=== PATIENT | female | born 1940 | race Caucasian/White ===

== ENCOUNTER 2022-01-04 11:50 | Emergency (ER) | payer MEDICARE, SELFPAY ==
[2022-01-04 12:03] VITALS: BP 191/83; PULSE 69; RESP 18; TEMP 36.6; O2SAT 94; BMI 23.6
[2022-01-04 12:18] VITALS: BP 175/80; PULSE 69; RESP 18; TEMP 36.6; O2SAT 96; BMI 23.6
[2022-01-04 12:27] LABS: Apearance,Urine Clear (Clear); Color,Urine Yellow (Yellow); PH,Urine 5.5 (5.0-8.5)
[2022-01-04 12:28] LABS: Bilirubin,Urine Negative (Negative); Blood, Urine Trace (Negative); Glucose,Urine (UA) Negative (Negative); Ketones,Urine Negative (Negative); Protein,Urine 1+ (Negative); UTC Leukocyte Esterase,Urine Trace (Negative); UTC Nitrate,Urine Negative (Negative); Urobilinogen,Urine 0.2 EU/dl (0.2)
--- NOTE | 2022-01-04 12:39 | HMH.EDUTC ---
[facility] [place] Clinical Impression: UTI (urinary tract infection) Qualifiers: Urinary tract infection type: site unspecified Hematuria presence: with hematuria Qualified Code(s): N39.0 - Urinary tract infection, site not specified Disposition: Home, Self-Care Condition on Discharge: Good Instructions: Urinary Tract Infection, Urine Culture, DI for Urinary Tract Infection (UTI) Additional Instructions: Drink plenty of fluids. Take tylenol or ibuprofen for pain or fever. Take the medications as directed. Follow up with your regular doctor. GO TO THE ER FOR ANY WORSENING SYMPTOMS The pyridium will make your urine turn orange, this is an expected side effect. It will stain your clothes if it comes into contact with them. We will culture the urine. That will tell what bacteria is causing your infection and which antibiotics will treat it best. Sometimes the first antibiotic we prescribe turns out to not work against different bacteria. So, make sure you follow up within 3 days if you are not getting better. Prescriptions: Nitrofurantoin Monohyd/M-Cryst [Macrobid 100 mg Capsule] 100 mg PO BID 5 Days #10 cap Transmission Status: Received by [facility] Phenazopyridine HCl [Pyridium 200mg Tablet] 200 pow PO TID #6 tab Transmission Status: Received by [facility] Referrals: Hasmukh Stearns [Primary Care Provider] - Time of Disposition: 12:41 Medical Decision Making - Medical Records Medical records reviewed: No: I reviewed the patient's medical records. - [place] Inquiry Pt receiving controlled substance: No Vital Signs: 01/04/22 12:03 01/04/22 12:18 01/04/22 12:42 Temperature 97.9 F 97.9 F 97.9 F Temperature Source Oral Oral Pulse Rate 69 Pulse Rate [Right Radial] 69 69 Respiratory Rate 18 18 18 Blood Pressure 175/80 H Blood Pressure [Right Arm] 191/83 H 175/80 H Blood Pressure Mean [Right Arm] 119 111 Blood Pressure Source [Right Arm] Automatic Cuff Blood Pressure Position [Right Arm] Sitting 02 Sat by Pulse Oximetry 94 L 96 Oxygen Delivery Method Room Air - Lab Data Lab results reviewed: Yes: I reviewed the patient's lab results. Lab Results 01/04/22 12:23: Urine Color Yellow, Urine Appearance Clear, Urine pH 5.5, Ur Specific [place] 1.010, Urine Protein 1+, Urine Glucose (UA) Negative, Urine Ketones Negative, Urine Blood Trace, Urine Nitrate Negative, Urine Bilirubin Negative, Urine Urobilinogen 0.2, Ur Leukocyte Esterase Trace Orders (Tests/Meds): ORDERS Category Date Time Status Urine Culture Stat Micro 01/04/22 12:14 Results [facility] [place] - General Stated complaint: back pain, bilateral leg pain Time Seen by Provider: 01/04/22 12:39 Mode of Arrival: Ambulatory Source of Information: Patient Description of Symptoms (Recalled from Triage Doc. by RN): patient comes in with complaints of lower back and bilateral leg pain. patient states that she had a kidney infection about 2 weeks ago and took medication but she states that it is getting better HEENT Symptoms (Recalled from RN notes): No Resp Symptoms (Recalled from RN notes): No Skin Symptoms (Recalled from RN notes): No MS Symptoms (Recalled from RN notes): Yes Functional Status (Recalled from RN notes): n/a - History of Present Illness Provider Complaint: She states that for the past 3 days she has had worsening low back pain and urinary frequency. She had a uti that she was treated for around 2 weeks ago. She states she was told it was gone out of her urine but she never did feel like it got completely better. - Related Data Previous Rx's Medication Instructions Recorded levoFLOXacin [Levaquin 750mg 750 mg PO DAILY #3 tab 07/14/19 tablet] polyethylene glycoL 3350 [Miralax 17 gm PO DAILYP PRN #7 packet 07/14/19 17gm Packet] Nitrofurantoin Monohyd/M-Cryst 100 mg PO BID 5 Days #10 cap 01/04/22 [Macrobid 100 mg Capsule] Phenazopyridine HCl [Pyridium 200
[2022-01-04 12:42] VITALS: BP 175/80; PULSE 69; RESP 18; TEMP 36.6
== END 2022-01-04 12:49 | disposition home or self-care (01) ==
PROVIDERS: Emergency Provider Nurse Practitioner Family; PCP Family Medicine
DX: N39.0 Urinary tract infection, site not specified (principal); M54.50 Low back pain, unspecified; M79.605 Pain in left leg; M79.604 Pain in right leg; Z79.899 Other long term (current) drug therapy; Z88.0 Allergy status to penicillin
CPT/HCPCS: 81003; 87086; 87088; 87186; 99213; G0463

== ENCOUNTER 2022-03-30 10:20 | Emergency (ER) | payer MEDICARE, SELFPAY ==
[2022-03-30 10:21] VITALS: PULSE 76; RESP 18; O2SAT 97; BMI 18.1
[2022-03-30 10:54] VITALS: BP 119/59; PULSE 76; RESP 16; TEMP 36.6; O2SAT 97; BMI 19.5
--- NOTE | 2022-03-30 10:56 | XR_ITS ---
PROCEDURE INFORMATION: Exam: XR Complete Acute Abdomen Series Including Chest Exam date and time: 03/30/2022 10:53 AM Age: 82 years old Clinical indication: Abdominal pain; Additional info: Constipation TECHNIQUE: Imaging protocol: Radiologic exam. Complete acute abdomen series, including 2 or more views of the abdomen and a single view chest. COMPARISON: CT ABDOMEN PELVIS WO CON 07/14/2019 8:44 AM FINDINGS: Lungs: Normal. No consolidation. Pleural spaces: Normal. No pleural effusions. No pneumothorax. Heart/Mediastinum: Air-fluid level superimposed upon the mediastinum. Findings compatible with moderate hiatal hernia. Gastrointestinal tract: Retained fecal material nondistended large bowel loops. Intraperitoneal space: Normal. No free air. Organs: Postoperative change consistent with previous cholecystectomy. Bones/joints: Normal. No acute fracture. Soft tissues: Normal. IMPRESSION: Nonspecific bowel gas pattern.
--- NOTE | 2022-03-30 11:11 | EXP.UTC ---
Discharge Plan Disposition Patient Disposition: Home, Self-Care Condition: Good Prescriptions Prescriptions: No Action clopidogrel [Plavix] 75 mg tablet 75 mg PO DAILY ferrous sulfate [iron] 325 mg (65 mg iron) tablet 325 mg PO DAILY rosuvastatin 20 mg tablet 20 mg PO DAILY nitrofurantoin macrocrystal 100 mg capsule 100 mg PO BID Rx Instructions: must administer with a meal/food cholecalciferol (vitamin D3) [Vitamin D3] 25 mcg (1,000 unit) capsule 25 mcg PO DAILY aspirin 81 mg tablet,delayed release (DR/EC) 81 mg PO DAILY lisinopril 10 mg tablet 10 mg PO DAILY acetaminophen [Tylenol 8 Hour] 650 mg tablet extended release 650 mg PO Q12H gabapentin 300 mg capsule 300 mg PO BID nifedipine 90 mg tablet extended release 90 mg PO DAILY metoprolol succinate 25 mg tablet extended release 24 hr 25 mg PO DAILY alendronate 70 mg tablet 70 mg PO WEEKLY allopurinol 100 mg tablet 100 mg PO DAILY oxybutynin chloride 5 mg tablet 5 mg PO BID furosemide 40 mg tablet 80 mg PO DAILY sulfamethoxazole-trimethoprim 800-160 mg tablet 1 tab PO BID tramadol 50 mg tablet 50 mg PO BID PRN Referrals Follow up/Referrals: Jovanny Gonzalez MD [Primary Care Provider] - See instructions Activity Restrictions/Add. Instructions Additional Instructions/Restrictions: Ahwm-iaf-zdhtpjq MiraLAX daily for 5 days. Kqmy-cuw-sivzozo Dulcolax suppository as needed to stimulate a bowel movement. Follow-up with primary care provider for further care, call for appointment. Clinical Impressions Clinical Impression: Encounter for pessary maintenance, Acute constipation Discharge ED Provider: Raj Lockhart [facility] General Chief complaint: Recheck/Abnormal Lab/Rx Stated complaint: constipation Mode of Arrival: Ambulatory Source of Information: Patient Limitations: No Limitations Time Seen by Provider: 03/30/22 11:11 Description of Symptoms (Recalled from Triage Doc. by RN): pt comes in with c/o constipation ongoing for 6-7 days. pts caregiver has not tried anything over the counter to help. pt reports no use of narcotics. HEENT Symptoms (Recalled from RN notes): No Resp Symptoms (Recalled from RN notes): No Skin Symptoms (Recalled from RN notes): No MS Symptoms (Recalled from RN notes): No Functional Status (Recalled from RN notes): n/a History of Present Illness Provider Complaint: She states that it has been 5 days since her last bowel movement. She is having lower abdominal cramping also. She also has a pessiary to hold her bladder up that has been stuck in for the past 7 days. She is supposed to remove it every 3 days but she has been unable to get it out. Related Data Home Medications Medication Instructions Recorded Confirmed alendronate 70 mg tablet 70 mg PO WEEKLY osteoporosis 03/26/22 03/28/22 allopurinol 100 mg tablet 100 mg PO DAILY 03/26/22 03/28/22 gabapentin 300 mg capsule 300 mg PO BID 03/26/22 03/28/22 metoprolol succinate 25 mg 25 mg PO DAILY HTN 03/26/22 03/28/22 tablet,extended release 24 hr nifedipine 90 mg tablet,extended 90 mg PO DAILY HTN 03/26/22 03/28/22 release acetaminophen 650 mg 650 mg PO Q12H 03/28/22 03/28/22 tablet,extended release (Tylenol 8 Hour) aspirin 81 mg tablet,delayed 81 mg PO DAILY 03/28/22 03/28/22 release cholecalciferol (vitamin D3) 25 25 mcg PO DAILY 03/28/22 03/28/22 mcg (1,000 unit) capsule (Vitamin D3) clopidogrel 75 mg tablet (Plavix) 75 mg PO DAILY 03/28/22 03/28/22 ferrous sulfate 325 mg (65 mg 325 mg PO DAILY 03/28/22 03/28/22 iron) tablet (iron) furosemide 40 mg tablet 80 mg PO DAILY 03/28/22 03/28/22 lisinopril 10 mg tablet 10 mg PO DAILY 03/28/22 03/28/22 nitrofurantoin macrocrystal 100 mg 100 mg PO BID 03/28/22 03/28/22 capsule oxybutynin chloride 5 mg tablet 5 mg PO BID 03/28/22 03/28/22 rosuvastatin 20 mg tablet 20 mg PO DAILY 03/28/2203/28
[2022-03-30 12:00] VITALS: BP 132/27; PULSE 66; RESP 18; O2SAT 97
[2022-03-30 12:30] VITALS: BP 127/51; PULSE 68; RESP 18; O2SAT 92
[2022-03-30 13:00] VITALS: BP 127/52; PULSE 65; O2SAT 98
--- NOTE | 2022-03-30 13:11 | HMH.EDGENADL ---
Discharge Plan Disposition Patient Disposition: Home, Self-Care Condition: Good Chief Complaint: Recheck/Abnormal Lab/Rx Prescriptions Prescriptions: No Action clopidogrel [Plavix] 75 mg tablet 75 mg PO DAILY ferrous sulfate [iron] 325 mg (65 mg iron) tablet 325 mg PO DAILY rosuvastatin 20 mg tablet 20 mg PO DAILY nitrofurantoin macrocrystal 100 mg capsule 100 mg PO BID Rx Instructions: must administer with a meal/food cholecalciferol (vitamin D3) [Vitamin D3] 25 mcg (1,000 unit) capsule 25 mcg PO DAILY aspirin 81 mg tablet,delayed release (DR/EC) 81 mg PO DAILY lisinopril 10 mg tablet 10 mg PO DAILY acetaminophen [Tylenol 8 Hour] 650 mg tablet extended release 650 mg PO Q12H gabapentin 300 mg capsule 300 mg PO BID nifedipine 90 mg tablet extended release 90 mg PO DAILY metoprolol succinate 25 mg tablet extended release 24 hr 25 mg PO DAILY alendronate 70 mg tablet 70 mg PO WEEKLY allopurinol 100 mg tablet 100 mg PO DAILY oxybutynin chloride 5 mg tablet 5 mg PO BID furosemide 40 mg tablet 80 mg PO DAILY sulfamethoxazole-trimethoprim 800-160 mg tablet 1 tab PO BID tramadol 50 mg tablet 50 mg PO BID PRN Referrals Follow up/Referrals: Jovanny Gonzalez MD [Primary Care Provider] - See instructions Activity Restrictions/Add. Instructions Additional Instructions/Restrictions: Qsss-xkf-poisccw MiraLAX daily for 5 days. Hczt-qih-mnxbutx Dulcolax suppository as needed to stimulate a bowel movement. Follow-up with primary care provider for further care, call for appointment. Clinical Impressions Clinical Impression: Encounter for pessary maintenance, Acute constipation Discharge ED Provider: Raj Lockhart General Adult HPI General Stated complaint: constipation Time Seen by Provider: 03/30/22 11:11 Mode of Arrival: Ambulatory Source of Information: Patient Limitations: No Limitations Description of Symptoms (Recalled from ER Triage Doc. by RN): pt comes in with c/o constipation ongoing for 6-7 days. pts caregiver has not tried anything over the counter to help. pt reports no use of narcotics. History of Present Illness HPI narrative: The patient is sent from the urgent treatment center. History obtained from patient and daughter. Patient states that she has a pessary. She normally takes it out every 2 days or so and cleans it and reinsert it herself. She says recently she was in the hospital and therefore did not take it out and now she cannot get it out herself. She is requesting that her pessary be removed. She has some mild suprapubic abdominal pain, but she says she thinks this it is due to not being able to get her pessary out. She also has had frequent urinary tract infections recently and is currently being treated for UTI. She was recently in the hospital at [facility] for hypertensive emergency and elevated troponins. She was admitted there on 03/26/2022 after seeing her primary care provider in the office. After discharge she followed up with cardiology and her primary care provider on 03/28/2022. Denies vomiting. Denies fever. Denies chest pain or shortness of breath. States she is not otherwise ill. She had an x-ray of the abdomen done in the urgent treatment center which did not show fecal retention without signs of obstruction. Related Data Home Medications Medication Instructions Recorded Confirmed alendronate 70 mg tablet 70 mg PO WEEKLY osteoporosis 03/26/22 03/28/22 allopurinol 100 mg tablet 100 mg PO DAILY 03/26/22 03/28/22 gabapentin 300 mg capsule 300 mg PO BID 03/26/22 03/28/22 metoprolol succinate 25 mg 25 mg PO DAILY HTN 03/26/22 03/28/22 tablet,extended release 24 hr nifedipine 90 mg tablet,extended 90 mg PO DAILY HTN 03/26/22 03/28/22 release acetaminophen 650 mg 650 mg PO Q12H 03/28/22 03/28/22 tablet,extended release (Tylenol 8 Hour)
[2022-03-30 13:45] VITALS: BP 127/52; PULSE 65; RESP 18; TEMP 36.6; O2SAT 98
== END 2022-03-30 13:46 | disposition home or self-care (01) ==
LOC: UTC 10:32 → ER 11:32
PROVIDERS: Emergency Provider Emergency Medicine; PCP Family Medicine
DX: K56.41 Fecal impaction (principal); N39.0 Urinary tract infection, site not specified; R79.89 Other specified abnormal findings of blood chemistry; I16.1 Hypertensive emergency; I20.8 Other forms of angina pectoris; Z79.1 Long term (current) use of non-steroidal anti-inflammatories (NSAID); Z79.02 Long term (current) use of antithrombotics/antiplatelets; Z79.82 Long term (current) use of aspirin; Z79.899 Other long term (current) drug therapy; Z88.0 Allergy status to penicillin; Z87.440 Personal history of urinary (tract) infections; Z83.3 Family history of diabetes mellitus
CPT/HCPCS: 74021; 99283

== ENCOUNTER → 2022-04-05 07:22 | Outpatient (CLI) | payer MEDICARE, SELFPAY ==
--- NOTE | 2022-04-05 | CA_ITS ---
APPROVED REPORT Exam: Pharmacologic Technologist: Mirian Aguilera, Ht: 5 ft 1 in Wt: 106 lbs BSA: 1.44 m2 HR: 61 bpm BP: 176/74 mmHg Medical History Medications: Lisinopril,,,,, Aspirin,,,,, Ferrous sulfate,,,,, Gabapentin,,,,, Vitamin D3,,,,, Allopurinol,,,,, Metoprolol Succinate,,,,, Tramadol,,,,, CloPIdogrel,,,,, Acetaminophen,,,,, RoSUVASTATIN,,,,, NifEDIPINE,,,,, Stress Test Details Test: LEXISCAN Reason for pharmacologic stress test: physical limitation. HR Resting HR: 61 bpm Max Heart Rate (APMHR): 137.073517 bpm Max HR Achieved: 76 bpm Target HR (85% APMHR): 116.102447 bpm % of APMHR: 55.47 Recovery HR: 64 bpm BP Resting BP: 176/74 mmHg Max BP: 194/80 mmHg Recovery BP: 176.0/77.0 mmHg ECG Resting ECG: SR Clinical Exercise duration: 04:11 min Highest Stage Achieved: Exercise capacity: 1.0 METs Stress ECG Conclusion Pt did not take BP meds -states she only takes PRN -advised to take BP meds once home. Symptoms: None Arrhythmias/Ectopy: PACs noted, atrial couplets ST-T Changes: <1.5mm ST segment depression Conclusion: Test Summary REST . . . . . . . Resting REST 10:23 . . 61 . 176/ 74 . . Stage 1 01:00 . . 72 . . . . Stage 2 01:00 . . 72 . 194/ 80 . . Stage 3 01:00 . . 65 . 182/ 73 . . Stage 4 01:00 . . 64 . 174/ 75 . . Stage 4 01:11 . . 65 . 174/ 75 . Stop exercise at 04:11 RECOVERY 01:00 . . 62 . . . . RECOVERY 02:00 . . 67 . 178/ 75 . . RECOVERY 03:00 . . 65 . 178/ 75 . . RECOVERY 03:34 . . 60 . 176/ 77 . . Electronically signed by : Kevin Thurston MD 04/05/2022 12:18:40
--- NOTE | 2022-04-05 07:31 | NM_ITS ---
APPROVED REPORT Exam: Nuclear Stress Test Indication: Angina, Fatigue, HTN, High cholesterol, Family history Patient Location: Outpatient Stress Tech: Mirian Anand [place] Tech:SHAE George RT (R)(N)(M) Ht: 5 ft 0 in Wt: 100 lbs Bra Size: 36DD HR: 61 bpm BP: 176/74 mmHg BSA: 1.39 m2 TID: 1.19 History: Angina, Fatigue, HTN, High cholesterol, Family history Procedure: Patient received a 0.4 mg of intravenous Lexiscan, resting heart rate 61 bpm, resting blood pressure 176/74 mmHg, with Lexiscan maximum heart rate achived was 72 bpm which is Less than 85 % of the maximum predicted heart rate and blood pressure was 194/80 mmHg. With Lexiscan, patient denied any complaint of chest pain. Electrocardiogram Resting electrocardiogram shows sinus rhythm, with Lexiscan there is less than 1.[address] segment depression noted from the baseline EKG. The EKG portion of the Lexiscan is nondiagnostic. Cardiac Stress and Resting SPECT Images: Cardiac Stress and Resting SPECT images were obtained using technetium 99m Myoview 29.9 mCi stress and 10.40 mCi at rest. Gated SPECT for analysis of segmental wall motion and calculation of the ejection fraction also done. Cardiac stress and rest images show reversible ischemia involving the anterior apical wall, computer derived ejection fraction is 57% with no regional wall motion abnormality, right ventricle is normal size and contractility. Conclusion: 1. The EKG portion of the Lexiscan is nondiagnostic. 2. Scintigraphic evidence of reversible ischemia involving the anterior and apical wall, computer derived ejection fraction is 57% with no regional wall motion abnormality, right ventricle is normal size and contractility. 3. Abnormal Lexiscan Myoview study. Electronically signed by : Kevin Thurston MD 04/05/2022 15:44:22
--- NOTE | 2022-04-05 07:58 | CA_ITS ---
APPROVED REPORT EXAM: Comprehensive 2D, Doppler, and color-flow Echocardiogram Power Cutting Machine Operator: Monique Britt RVT Ht: 5 ft 1 in Wt: 106lbs BSA: 1.44 BP: 129/65 mmHg Indications: NSTEMI,ANGINA,HTN 2D Dimensions LVOT 1.96 cm (M/F) 1.5-2.5 LA Volume 26.10 mL LA Volume Index 18.12 mL/m2 (M/F) 16-34 M-Mode Dimensions RVDd 2.43 cm (0.9-2.6) LA Diam 4.65 cm (1.9-4.0) LVDd 5.39 cm (3.5-5.7) Ao Diam 2.84 cm (2.0-3.7) LVDs 3.57 cm (3.5-5.7) IVSd 1.21 cm (0.6-1.1) PWd 0.76 cm (0.6-1.1) EF (Teich) 62.10% FS 33.80% EDV (Teich) 140.70 mL TAPSE 2.35 (<1.7) ESV (Teich) 53.30 mL LV Diastology E Decel Time 203.00 (160-240 msec) E/A Ratio 0.8 MED E' 10.20 (< 7 cm/sec) E'/MED E' Ratio 9.35 (>14) LAT E' 6.10 (<10 cm/sec) E/LAT E' Ratio 15.64 (>14) Aortic Valve LVOT Max 107.00 (70-110 cm/s) LVOT VTI 31.03 cm AoV Peak Hira. 206.00 (50-130 cm/s) AI PHT 726.00 ms AO Peak GR. 16.90 mmHg AO Mean GR. 10.10 (<5 mmHg) AO VTI 43.75 (18-25 cm) SYBIL (VTI) 2.14 (2.5-4.5 cm2) Mitral Valve MV E Max Hira. 95.00 (40-130 cm/s) MV A Velocity 126.00 (40-130 cm/s) E/A Ratio 0.76 MV Decel. Time 203.00 (160-240 ms) MV PHT 60.00 ms Pulmonary Valve PV Peak Velocity 110.00 (50-150 cm/s) Tricuspid Valve TR P. Velocity 306.00 cm/s RAP Estimate 10.00 mmHg RVSP 47.50 mmHg Left Ventricle Left atrium is mildly enlarged, left ventricle is normal size mild concentric left ventricular hypertrophy, estimated ejection fraction 55% with no regional wall motion abnormality, grade 1 diastolic dysfunction seen without tissue Doppler is evidence of raise left atrial pressure. Right Ventricle Right atrium and right ventricle are mildly enlarged with normal contractility. Aortic Valve Aortic valve is thickened and calcified without significant aortic stenosis, there is mild aortic insufficiency. Mitral Valve Mitral valve has mitral annular calcification, there is no mitral stenosis, there is mild mitral regurgitation. Tricuspid Valve Tricuspid valve grossly normal, there is mild tricuspid regurgitation, calculated right ventricular systolic pressure is 48 mmHg. Pulmonic Valve Pulmonic valve is poorly visualized. Great Vessels Aortic root is normal size. Inferior vena cava is normal size with normal inspiratory collapse. Pericardium No significant pericardial effusion noted. Conclusion 1. Mild biatrial enlargement, normal left ventricular size, mild concentric left ventricular hypertrophy, estimated ejection fraction 55% with no regional wall motion abnormality, grade 1 diastolic dysfunction seen without tissue Doppler evidence of reduced left atrial pressure. 2. Mildly enlarged right ventricle with normal contractility. 3. Thickened and calcified aortic valve without aortic stenosis, there is mild aortic insufficiency. 4. Mild mitral and tricuspid regurgitation, calculated right ventricular systolic pressure is 48 mmHg. 5. No significant pericardial effusion noted. 6. Inferior vena cava is normal size with normal inspiratory collapse. Electronically signed by : Kevin Thurston MD 04/05/2022 12:45:49
== END ==
LOC: RAD 07:23
PROVIDERS: PCP Family Medicine; Visit Provider Nurse Practitioner
DX: I10 Essential (primary) hypertension (principal); I21.4 Non-ST elevation (NSTEMI) myocardial infarction; I20.8 Other forms of angina pectoris
CPT/HCPCS: 78452; 93017; 93306; A9502; J2785

== ENCOUNTER 2022-04-22 13:44 | Observation (INO) | payer MEDICARE, SELFPAY ==
[2022-04-22] VITALS (24 sets, daily range): BP systolic 103–137; BP diastolic 49–66; PULSE 48–74; RESP 15–20; TEMP 36.3–37.1; O2SAT 90–100; BMI 20.4; BMI 21.9
--- NOTE | 2022-04-22 | IR_ITS ---
APPROVED REPORT Patient Location: Outpatient Gift Manager: SHAE Roger RT (R) PROCEDURES Left heart catheterization Left ventriculogram Selective coronary angiogram Drug-eluting stent deployment to the proximal LAD INDICATION Abnormal Myoview, Angina pectoris, Coronary artery disease Informed consent was obtained prior to the procedure. COMPLICATIONS None Estimated Blood Loss: Less than 10 mls TECHNIQUE One percent lidocaine used to anesthetize the right anterior aspect of the wrist. The right radial artery was accessed via the Seldinger technique. A 6 Danish sheath was placed in the right radial artery. 2.5 mg of verapamil, 800 mcg of nitroglycerin, 1mg Lidocaine and 5000 U Heparin were given through the arterial sheath. The papa catheter was also used to perform selective coronary angiogram. At the end of the angiogram guide catheter was placed in the left main artery and 3 wires were placed into the vessels 1 into the ramus intermedius abdomen the circumflex artery and then eventually a Choice PT extra-support wire was placed into the LAD. Following this a 2.75 x 22 mm resolute Downs stent was deployed at 20 víctor reducing the stenosis to less than 10%. An additional 3.25 mm x 8 mm noncompliant balloon was then deployed at 24 víctor in the proximal portion of the stent in order to post dilate. Excellent angiographic results were obtained with ELIZABETH-3 flow being present down the vessel before and after the procedure. At the end of procedure the apparatus was removed the sheath was removed good hemostasis was achieved using TR banding patient was transferred to the postop putting in stable condition ANGIOGRAPHIC RESULTS The left main artery Normal The left anterior descending artery Has a proximal 20% stenosis which is adjacent to a small first diagonal artery followed by a large septal print decorator. The LAD then has a concentric 70 to 80% stenosis. The circumflex artery Is a dominant system giving rise to a large ramus intermedius which has mild atheromatous plaque and a large circumflex artery which has mild nonflow limiting 10% stenosis The right coronary artery Small nondominant calcified with nothing greater than 30% The JANSEN ventriculogram reveals Not performed The left ventricular end-diastolic pressure Not measured IMPRESSION Proximal to mid LAD disease as described above with successful stenting reducing the severe stenosis to 0% with 1 drug-eluting stent PLAN 1. Dual antiplatelet therapy 2. Patient should be monitored overnight and given IV fluids for the creatinine of 1.9. 3. Chemistry panel should be checked in the morning to make sure that she is not experiencing contrast nephropathy 4. Standard therapy for ischemic heart disease 5. LDL less than 55 to be achieved with high intensity statin 6. Avoidance of tobacco products 7. Risk factor modification Electronically signed by : Dario Mireles MD 04/22/2022 13:40:28
[2022-04-22 09:50] LABS: Basophils # 0.1 K/mm3 (0-0.2); Basophils % 0.6 % (0.1-2.0); Eosinophils # 0.4 K/mm3 (0.0-0.4); Hematocrit 36.9 % (37.0-47.0); Hemoglobin 12.1 g/dL (12.2-16.2); Lymphocytes # 2.2 K/mm3 (0.7-4.5); Lymphocytes % 23.7 % (10-50); Mean Corpuscular HGB Conc 32.8 g/dL (31.8-35.4); Mean Corpuscular Hemoglobin 32.4 pg (27.0-31.2); Mean Corpuscular Volume 98.8 fl (81-99); Mean Platelet Volume 8.3 fl (7.4-10.4); Monocytes # 0.5 K/mm3 (0.1-1.0); Monocytes % 5.5 % (1.7-9.3); Neutrophils # 6.1 K/mm3 (1.8-7.8); Neutrophils % 66.2 % (37.0-80.0); Platelet Count 286 K/mm3 (142-424); Red Blood Count 3.74 M/mm3 (4.20-5.40); Red Cell Distribution Width 14.4 % (11.5-17.5); White Blood Count 9.2 K/mm3 (4.8-10.8)
[2022-04-22 09:55] LABS: Chloride 94 mmol/L (98-107); Potassium 3.8 mmoL/L (3.5-5.1); Sodium 131 mmol/L (136-145)
[2022-04-22 09:58] LABS: Anion Gap 15.8 mEq/L (5-15); Blood Urea Nitrogen 58 mg/dl (7-17); Carbon Dioxide 25 mmol/L (22.0-30.0); Creatinine Clearance Estimated 17 mL/min (50-200); Estimated Glomerular Filt Rate 25 ml/min (>60); GFR (African American) 31 ML/MIN (>60)
[2022-04-22 09:59] LABS: Calcium 9.4 mg/dl (8.4-10.2); Glucose 110 mg/dl (74-100)
--- NOTE | 2022-04-22 13:57 | PC.NURSE ---
arrived by [facility] from [facility]
--- NOTE | 2022-04-22 14:26 | HMH.PHAINT1 ---
Pharmacy Intervention Comments: Medication reconciliation completed via external fill records and chart review. -Trina Grover, PharmD Candidate 2022
--- NOTE | 2022-04-22 15:00 | EXP.HP ---
History of Present Illness *Admission Date: 04/22/22 *Reason for visit:: NOLBERTO, left heart cath *History of present illness: Patient is an 82-year-old woman with past medical history of hypertension, coronary artery disease, and chronic kidney disease who is admitted for abservation after underoing a left heart cath earlier today. Pt had had a nuclear stress test on 04/05/2022 to load anterior and apical reversible ischemia. She was therefore scheduled for a left heart cath today and she had 1 stent placed in her mid LAD. Patient reports she is doing well, at her baseline she does not walk very much as her ambulation is limited by hip and other joint pain as well as chronic fatigue. Currently patient denies chest pain, shortness of breath, fever, chills, vomiting, diarrhea, constipation. PFSH PFSH Medical History NSTEMI (non-ST elevated myocardial infarction) Typical angina Surgical History History of cholecystectomy History of hysterectomy Family History Father Diabetes Social History Smoking Status: Unknown if ever smoked alcohol intake: never substance use type: denies use current occupational status: retired Travel in the last 8 weeks: None household members: none housing: house Review of Systems Constitutional Constitutional: Denies body ache(s), Denies chills, Reports fatigue, Denies fever(s), Denies increased appetite, Denies poor appetite and Reports lethargy Eyes Eyes: Denies change in vision ENT Ears, Nose, Mouth, and Throat: Denies abnormal hearing, Reports disequilibrium, Reports dizziness and Denies dysphagia *Cardiovascular Cardiovascular: Denies chest pain, Denies dyspnea, Denies dyspnea on exertion, Denies irregular heart rhythm and Denies leg edema *Respiratory Respiratory: Denies chest congestion, Denies cough, Denies dyspnea, Denies dyspnea on exertion and Denies wheezing *Gastrointestinal Gastrointestinal: Denies abdominal pain, Denies constipation, Denies dysphagia, Denies nausea and Denies vomiting *Musculoskeletal Musculoskeletal: Reports arthralgias and Denies myalgias *Neurologic Neurologic: Denies abnormal hearing, Denies confusion, Reports disequilibrium, Reports dizziness and Denies lack of coordination Psychiatric Psychiatric: Denies confusion and Denies depression Endocrine Endocrine: Reports fatigue Allergic/Immunologic Allergic/Immunologic: Denies wheezing Meds Home Medications and Allergies Home Medications Medication Instructions Recorded Confirmed Type alendronate 70 mg tablet 70 mg PO WEEKLY osteoporosis 03/26/22 04/22/22 History allopurinol 100 mg tablet 100 mg PO DAILY gout 03/26/22 04/22/22 History metoprolol succinate 25 mg 25 mg PO DAILY HTN 03/26/22 04/22/22 History tablet,extended release 24 hr acetaminophen 650 mg 650 mg PO Q12H . 03/28/22 04/22/22 History tablet,extended release (Tylenol 8 Hour) aspirin 81 mg tablet,delayed 81 mg PO DAILY . 03/28/22 04/22/22 History release cholecalciferol (vitamin D3) 25 25 mcg PO DAILY . 03/28/22 04/22/22 History mcg (1,000 unit) capsule (Vitamin D3) clopidogrel 75 mg tablet (Plavix) 75 mg PO DAILY NSTEMI 03/28/22 04/22/22 History ferrous sulfate 325 mg (65 mg 325 mg PO DAILY . 03/28/22 04/22/22 History iron) tablet (iron) furosemide 40 mg tablet 80 mg PO DAILY diuretic 03/28/22 04/22/22 History lisinopril 10 mg tablet 10 mg PO DAILY Hypertension 03/28/22 04/22/22 History nitrofurantoin macrocrystal 100 mg 100 mg PO BID Infection 03/28/22 04/22/22 History capsule oxybutynin chloride 5 mg tablet 5 mg PO BID incontinence 03/28/22 04/22/22 History rosuvastatin 20 mg tablet 20 mg PO DAILY High cholesterol 03/28/22 04/22/22 History tramadol 50 mg tablet 50 mg PO BID PRN pain #60 tabs 04/15/22
[2022-04-22 15:26] LABS: CATHL Activated Clotting Time 332 SEC (74-125)
[2022-04-23] VITALS: PULSE 70
[2022-04-23 04:00] VITALS: BP 115/52; PULSE 68; PULSE 70; RESP 18; TEMP 36.9; O2SAT 90
[2022-04-23 05:22] VITALS: BMI 21.4
--- NOTE | 2022-04-23 05:45 | PC.NURSE ---
NO ACUTE CHANGES SINCE PREVIOUS ASSESSMENT. PT HAS RESTED WELL THIS SHIFT. NO C/O OF CHEST PAIN OR SOB. RADIAL CATH SITE IS C/D/I. VSS. LUNG SOUNDS ARE CLEAR.
[2022-04-23 07:16] LABS: Alanine Aminotransferase 25 U/L (12-78); Albumin Level 3.2 g/dl (3.5-5.0); Albumin/Globulin Ratio 1.2 (1.1-1.8); Alkaline Phosphatase 94 U/L (38-126); Anion Gap 12.4 mEq/L (5-15); Aspartate Amino Transferase 39 U/L (14-36); Bilirubin,Total 0.2 mg/dl (0.2-1.3); Blood Urea Nitrogen 55 mg/dl (7-17); Calcium 8.6 mg/dl (8.4-10.2); Carbon Dioxide 25 mmol/L (22.0-30.0); Chloride 101 mmol/L (98-107); Creatinine Clearance Estimated 18 mL/min (50-200); Estimated Glomerular Filt Rate 25 ml/min (>60); GFR (African American) 31 ML/MIN (>60); Globulin 2.6 g/dL (1.3-3.2); Glucose 87 mg/dl (74-100); Magnesium 2.1 mg/dl (1.6-2.3); Potassium 4.4 mmoL/L (3.5-5.1); Sodium 134 mmol/L (136-145); Total Protein,Serum 5.8 g/dl (6.3-8.2)
[2022-04-23 07:24] LABS: Basophils % 0.5 % (0.1-2.0); Eosinophils # 0.4 K/mm3 (0.0-0.4); Eosinophils % 5.4 % (0.1-12.0); Hematocrit 31.3 % (37.0-47.0); Hemoglobin 10.3 g/dL (12.2-16.2); Lymphocytes # 1.4 K/mm3 (0.7-4.5); Mean Corpuscular HGB Conc 32.6 g/dL (31.8-35.4); Mean Corpuscular Hemoglobin 31.7 pg (27.0-31.2); Mean Corpuscular Volume 97.3 fl (81-99); Mean Platelet Volume 8.6 fl (7.4-10.4); Monocytes # 0.5 K/mm3 (0.1-1.0); Monocytes % 6.8 % (1.7-9.3); Neutrophils # 4.8 K/mm3 (1.8-7.8); Neutrophils % 67.3 % (37.0-80.0); Platelet Count 235 K/mm3 (142-424); Red Blood Count 3.22 M/mm3 (4.20-5.40); Red Cell Distribution Width 14.5 % (11.5-17.5); White Blood Count 7.1 K/mm3 (4.8-10.8)
[2022-04-23 07:33] VITALS: BP 125/53; PULSE 79; RESP 16; TEMP 36.8; O2SAT 92
--- NOTE | 2022-04-23 11:05 | EXP.DC.SUM ---
General Admission date:: 04/22/22 Discharge date: 04/23/22 HPI HPI HPI: Patient is an 82-year-old woman with past medical history of hypertension, coronary artery disease, and chronic kidney disease who is admitted for abservation after underoing a left heart cath earlier today. Pt had had a nuclear stress test on 04/05/2022 to load anterior and apical reversible ischemia. She was therefore scheduled for a left heart cath today and she had 1 stent placed in her mid LAD. Patient reports she is doing well, at her baseline she does not walk very much as her ambulation is limited by hip and other joint pain as well as chronic fatigue. Currently patient denies chest pain, shortness of breath, fever, chills, vomiting, diarrhea, constipation. Hospital Course Hospital Course Hospital Course: 82-year-old female admitted for monitoring overnight due to elevated creatinine after heart cath. Monitored overnight with stable creatinine this morning. Previous labs from 2019 show creatinine 1.7. Trying to obtain labs from [facility] as she has had them drawn there previously. Patient hemodynamically stable overnight. Given stability of creatinine, suspicion that this may be her baseline, patient medically stable for discharge home. Would recommend repeat labs within the next week to monitor creatinine. Tolerating fair p.o. intake. Continue home medication, no changes as she was already on DAPT therapy. Cath results as follows. ANGIOGRAPHIC RESULTS The left main artery Normal The left anterior descending artery Has a proximal 20% stenosis which is adjacent to a small first diagonal artery followed by a large septal flight operations dispatch clerk.? The LAD then has a concentric 70 to 80% stenosis. The circumflex artery Is a dominant system giving rise to a large ramus intermedius which has mild atheromatous plaque and a large circumflex artery which has mild nonflow limiting 10% stenosis The right coronary artery Small nondominant calcified with nothing greater than 30% The JANSEN ventriculogram reveals Not performed The left ventricular end-diastolic pressure Not measured IMPRESSION Proximal to mid LAD disease as described above with successful stenting reducing the severe stenosis to 0% with 1 drug-eluting stent PLAN 1. Dual antiplatelet therapy 2. Patient should be monitored overnight and given IV fluids for the creatinine of 1.9. 3. Chemistry panel should be checked in the morning to make sure that she is not experiencing contrast nephropathy 4. Standard therapy for ischemic heart disease 5. LDL less than 55 to be achieved with high intensity statin 6. Avoidance of tobacco products 7. Risk factor modification Follow-up with PCP in a week and cardiology in 2 weeks Exam Data for Last 24 hours Vital signs and Labs for Last 24 Hours: Temp Pulse Resp BP Pulse Ox 98.2 F 79 16 125/53 L 92 L 04/23/22 07:33 04/23/22 07:33 04/23/22 07:33 04/23/22 07:33 04/23/22 07:33 Laboratory Results - last 24 hr 04/22/22 12:38: Activated Clotting Time 332 H* 04/23/22 06:35: WBC 7.1, RBC 3.22 L, Hgb 10.3 L D, Hct 31.3 L, MCV 97.3, MCH 31.7 H, MCHC 32.6, RDW 14.5, Plt Count 235, MPV 8.6, Neut % (Auto) 67.3, Lymph % (Auto) 20.0, Glasscock % (Auto) 6.8, Eos % (Auto) 5.4, Baso % (Auto) 0.5, Neut # (Auto) 4.8, Lymph # (Auto) 1.4, Glasscock # (Auto) 0.5, Eos # (Auto) 0.4, Baso # (Auto) 0.0 04/23/22 06:35: Sodium 134 L, Potassium 4.4, Chloride 101, Carbon Dioxide 25, Anion Gap 12.4, BUN 55 H, Creatinine 1.90 H, Estimated Creat Clear 18, Estimated GFR 25 L, Est GFR ( Amer) 31 L, Glucose 87 D, Calcium 8.6, Magnesium 2.1, Total Bilirubin 0.2, AST 39 H, ALT 25, Alkaline Phosphatase 94, Total Protein 5.8 L, Albumin 3.2 L, Globulin 2.6, Albumin/Globulin Ratio 1.2 I & O for Last 24 hours: Intake & Output 04/20/22 04/21/22 04/22/22 04/23/22 23:59 23:59 23:59 23:59 Intake Total 240 / 240 958 / 958 Output Total 600 / 600 200 / 200 Balance -360 / -360 758 / 758 We
[2022-04-23 11:13] VITALS: BP 109/58; PULSE 66; RESP 16; TEMP 36.7; O2SAT 93
[2022-04-23 11:48] LABS: Coronavirus 19, PCR Not Detected (NotDetected); Influenza A, PCR Not Detected (NotDetected); Influenza B, PCR Not Detected (NotDetected)
--- NOTE | 2022-04-23 11:53 | HMH.PHAINT1 ---
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 Of note, patient was already taking aspirin, clopidogrel, metoprolol, and rosuvastatin upon admission. Patient has no questions or concerns about these medications at this time.
--- NOTE | 2022-04-23 11:54 | HMH.PHAINT1 ---
Pharmacy Intervention Comments: Discharge counseling completed at bedside with the patient. No new medications were started and patient is comfortable with home medication regimen. Patient explains daughter uses a pill senior production planner at home to help manage the patient's medications. No questions or concerns at this time.
--- NOTE | 2022-04-24 11:10 | CARE MANAGER ---
Called and spoke with Ms. Zamorano in regards to post discharge status. Patient was unsure of how to care for her cardiac cath dressing. I clarified with cardiology and discussed care with patient. She is aware of her scheduled f/u appointments. No other concerns or questions at time of call.
== END 2022-04-23 13:30 | disposition home or self-care (01) ==
LOC: CATHLAB 13:45 → 2ND 13:45
PROVIDERS: Internal Medicine; Admitting Provider Emergency Medicine; PCP Family Medicine; Visit Provider Internal Medicine Adolescent Medicine
DX: N17.9 Acute kidney failure, unspecified (principal); I25.118 Atherosclerotic heart disease of native coronary artery with other forms of angina pectoris; Z95.5 Presence of coronary angioplasty implant and graft; I12.9 Hypertensive chronic kidney disease with stage 1 through stage 4 chronic kidney disease, or unspecified chronic kidney disease; I50.30 Unspecified diastolic (congestive) heart failure; N18.9 Chronic kidney disease, unspecified; I25.2 Old myocardial infarction; Z79.02 Long term (current) use of antithrombotics/antiplatelets; Z79.899 Other long term (current) drug therapy
CPT/HCPCS: G0378; 36415; 80048; 80053; 83735; 85025; 85347; 92928; 93458; 99152; 99153; C1725; C1769; C1876; C9600; C9803; J1644; Q9967; U0003; U0005

== ENCOUNTER → 2022-05-08 12:19 | Outpatient (CLI) | payer MEDICARE, SELFPAY ==
[2022-05-08 14:21] LABS: Anion Gap 13.8 mEq/L (5-15); Blood Urea Nitrogen 61 mg/dl (7-17); Calcium 10.1 mg/dl (8.4-10.2); Carbon Dioxide 28 mmol/L (22.0-30.0); Chloride 99 mmol/L (98-107); Estimated Glomerular Filt Rate 25 ml/min (>60); GFR (African American) 31 ML/MIN (>60); Glucose 95 mg/dl (74-100); Potassium 3.8 mmoL/L (3.5-5.1); Sodium 137 mmol/L (136-145)
== END ==
PROVIDERS: PCP Family Medicine; Visit Provider Nurse Practitioner
DX: E78.5 Hyperlipidemia, unspecified (principal); I10 Essential (primary) hypertension; I25.10 Atherosclerotic heart disease of native coronary artery without angina pectoris; I35.1 Nonrheumatic aortic (valve) insufficiency; I50.30 Unspecified diastolic (congestive) heart failure; N17.9 Acute kidney failure, unspecified; Z95.5 Presence of coronary angioplasty implant and graft
CPT/HCPCS: 36415; 80048

== ENCOUNTER 2022-07-16 10:00 | Outpatient (RCR) | payer MEDICARE, SELFPAY ==
--- NOTE | 2022-05-07 11:07 | HMH.PTOPEV ---
PT Outpatient Evaluation Rehab PT Outpatient Evaluation Start: 05/07/22 09:54 Freq: Status: Active Protocol: Document 05/07/22 09:54 BERNICEAMNABrissa (Rec: 05/07/22 11:07 PDESEROUX [id number]) E-signed By Thomas Freire, PT Outpatient Therapy Subjective History Subjective History Pt. is a 82 year old female whom presents to [facility] Outpatient [facility] Therapy Services in [place] for the initial evaluation this date( 05/07/22) w/ c/o chronic and intermittent imbalance, fall risk, and RLE hip/LB P! of insidious onset 4 months ago. Pt. reports noticing a decline in her balance 4 months ago, around the same time she began ambulating w/ her FWW. Pt. reports not wanting to build a dependency on her FWW, but feels safe ambulating with it at this time. Pt. reports having an increase in symptom complaint w/ ambulation and standing, reports having symptom relief w/ sitting or leaning on my walker. Pt. reports she lives alone in a 1 -story home where she is IND. w/ ADLs at this time. Pt. also reports having a cardiac cath . procedure on 04/20/22, stating everything feels good , RTMD(Dr. Mireles) next week. for a follow up. Pt. denies any SOB nor chest P! w/ exertion at this time post procedure. Pt. RTMD(Dr. Gonzalez) in [address] scan of the lumbar spine(2021) positive for degenerative changes per pt. report. Pt. denies history of cancer(self), denies history of pacemaker, denies latex allergy. PMH includes medicational allergy to Penicillin, cardiac stent(05/30), S/P Cholecystectomy, S /P Hysterectomy, pre-diabetes,
== END 2022-07-22 11:55 | disposition home or self-care (01) ==
LOC: PT 10:00
PROVIDERS: PCP Family Medicine; Visit Provider Family Medicine
DX: R26.81 Unsteadiness on feet (principal); M54.50 Low back pain, unspecified
CPT/HCPCS: 97110; 97112; 97116; 97163; 97164; 97530

== ENCOUNTER 2022-08-02 20:42 | Emergency (ER) | payer MEDICARE, SELFPAY ==
[2022-08-02 20:44] VITALS: BP 136/87; PULSE 68; RESP 20; TEMP 36.7; O2SAT 98; BMI 19.1
[2022-08-02 21:10] VITALS: BMI 22.4
[2022-08-02 21:28] LABS: Microscopic, Urine URINE MICROSCOPIC (MICROSCOPIC)
[2022-08-02 21:30] VITALS: BP 120/51; PULSE 56; O2SAT 90
[2022-08-02 21:31] LABS: Basophils # 0.1 K/mm3 (0-0.2); Basophils % 0.5 % (0.1-2.0); Eosinophils # 0.3 K/mm3 (0.0-0.4); Eosinophils % 2.3 % (0.1-12.0); Hematocrit 33.7 % (37.0-47.0); Hemoglobin 11.2 g/dL (12.2-16.2); Lymphocytes # 2.1 K/mm3 (0.7-4.5); Lymphocytes % 17.5 % (10-50); Mean Corpuscular HGB Conc 33.1 g/dL (31.8-35.4); Mean Corpuscular Hemoglobin 32.1 pg (27.0-31.2); Mean Corpuscular Volume 96.9 fl (81-99); Mean Platelet Volume 8.2 fl (7.4-10.4); Monocytes % 8.6 % (1.7-9.3); Neutrophils # 8.4 K/mm3 (1.8-7.8); Neutrophils % 71.1 % (37.0-80.0); Platelet Count 358 K/mm3 (142-424); Red Blood Count 3.48 M/mm3 (4.20-5.40); Red Cell Distribution Width 13.9 % (11.5-17.5); White Blood Count 11.8 K/mm3 (4.8-10.8)
--- NOTE | 2022-08-02 21:32 | PC.NURSE ---
called lab to notify that the urine sample is a cath specimen
[2022-08-02 21:34] LABS: Appearance,Urine CLEAR (Clear); Bilirubin,Urine Negative (Negative); Blood, Urine Negative (Negative); Chloride 90 mmol/L (98-107); Color,Urine YELLOW (Yellow); Glucose,Urine (UA) Negative (Negative); Ketones,Urine Negative (Negative); Leukocyte Esterase,Urine Negative (Negative); Nitrate,Urine Negative (Negative); Potassium 3.9 mmoL/L (3.5-5.1); Protein,Urine 1+ (Negative); Sodium 127 mmol/L (136-145); Urobilinogen,Urine 0.2 EU/dl (0.2)
[2022-08-02 21:37] LABS: Anion Gap 10.9 mEq/L (5-15); Blood Urea Nitrogen 56 mg/dl (7-17); Carbon Dioxide 30 mmol/L (22.0-30.0); Creatinine Clearance Estimated 16 mL/min (50-200); Estimated Glomerular Filt Rate 21 ml/min (>60); GFR (African American) 26 ML/MIN (>60)
[2022-08-02 21:38] LABS: Calcium 8.8 mg/dl (8.4-10.2); Glucose 106 mg/dl (74-100)
[2022-08-02 21:56] LABS: Squamous Epithelial Cell,Urine Occasional #/hpf (0-5); WBC,Urine Occasional #/hpf (0-3)
[2022-08-02 22:00] VITALS: BP 118/48; PULSE 62; O2SAT 90
--- NOTE | 2022-08-02 22:21 | PC.NURSE ---
Pt ambulatory to bathroom with assistance to attempt to have bowel movement. Pt was not able to have bowel movement at this time.
--- NOTE | 2022-08-02 22:23 | PC.NURSE ---
Dr. Chris at updating pt/family at this time
[2022-08-02 23:04] VITALS: BP 115/60; PULSE 60; RESP 20; TEMP 36.7; O2SAT 97
--- NOTE | 2022-08-03 01:46 | HMH.EDGENADL ---
Discharge Plan Disposition Patient Disposition: Home, Self-Care Condition: Fair Prescriptions Prescriptions: No Action clopidogrel [Plavix] 75 mg tablet 75 mg PO DAILY ferrous sulfate [iron] 325 mg (65 mg iron) tablet 325 mg PO DAILY rosuvastatin 20 mg tablet 20 mg PO DAILY cholecalciferol (vitamin D3) [Vitamin D3] 25 mcg (1,000 unit) capsule 25 mcg PO DAILY aspirin 81 mg tablet,delayed release (DR/EC) 81 mg PO DAILY metoprolol succinate 50 mg tablet extended release 24 hr 50 mg PO DAILY alendronate 70 mg tablet 70 mg PO FR allopurinol 100 mg tablet 100 mg PO DAILY oxybutynin chloride 5 mg tablet 5 mg PO BID furosemide 40 mg tablet 40 mg PO BID gabapentin 300 mg capsule 300 mg PO BID Qty: 60 5RF nifedipine 90 mg tablet extended release 90 mg PO DAILY Referrals Follow up/Referrals: Jovanny Gonzalez MD [Primary Care Provider] - See instructions Jesus Martinez MD [Referring] - See instructions Kenrick Jimenez MD [Referring] - See instructions Activity Restrictions/Add. Instructions Additional Instructions/Restrictions: Please follow-up with your primary care provider on Friday. If your urine output decreases even with the Eisenberg catheter, please return the emergency department immediately. Please contact urology to schedule new appointment for urinary retention at this time. Clinical Impressions Clinical Impression: Urinary tract infection Instructions Patient Instructions: DI for Urinary Tract Infection (UTI), DI for Urinary Tract Infection in Children Discharge ED Provider: Elio Chris Adult HPI General Chief complaint: Urogenital-Female Stated complaint: unable to void Time Seen by Provider: 08/02/22 23:00 Mode of Arrival: Family Vehicle Source of Information: Patient and Relative Limitations: No Limitations Description of Symptoms (Recalled from ER Triage Doc. by RN): Pt c/o not being able to void since late yesterday. Bladder distened on exam and per bladder scanner >600 ml present. Pt denies any pain in abd. Denies any fever, chills, or n/v/d. Pt does report she had known kidney disease and sees a business insight and analytics manager. States they tell me I might need to have diaylsis . History of Present Illness HPI narrative: Patient presents for evaluation of no urine output since yesterday. Patient has past medical history significant for chronic kidney disease and had lab work obtained yesterday for her symptoms outpatient, but given she has not had any urine today she presents for reevaluation. She denies pain, fever, dysuria with what little urine she has been able to put out. She does have a history of pelvic organ prolapse and currently uses a pessary as well. Related Data Home Medications Medication Instructions Recorded Confirmed alendronate 70 mg tablet 70 mg PO FR osteoporosis 03/26/22 07/31/22 allopurinol 100 mg tablet 100 mg PO DAILY gout 03/26/22 07/31/22 aspirin 81 mg tablet,delayed 81 mg PO DAILY . 03/28/22 07/31/22 release cholecalciferol (vitamin D3) 25 25 mcg PO DAILY . 03/28/22 07/31/22 mcg (1,000 unit) capsule (Vitamin D3) clopidogrel 75 mg tablet (Plavix) 75 mg PO DAILY NSTEMI 03/28/22 07/31/22 ferrous sulfate 325 mg (65 mg 325 mg PO DAILY . 03/28/22 07/31/22 iron) tablet (iron) oxybutynin chloride 5 mg tablet 5 mg PO BID incontinence 03/28/22 07/31/22 rosuvastatin 20 mg tablet 20 mg PO DAILY High cholesterol 03/28/22 07/31/22 nifedipine 90 mg tablet,extended 90 mg PO DAILY Hypertension 04/22/22 07/31/22 release furosemide 40 mg tablet 40 mg PO BID diuretic 04/29/22 07/31/22 metoprolol succinate 50 mg 50 mg PO DAILY HTN 07/31/22 07/31/22 tablet,extended release 24 hr Previous Rx's Medication Instructions Recorded gabapentin 300 mg capsule 300 mg PO BID neuropathic pain #60 07/18/22 caps Allergies Allergy/AdvReac Type Severity Reaction Status Date / Time Penicillins Aller
== END 2022-08-02 23:42 | disposition home or self-care (01) ==
PROVIDERS: Emergency Provider Emergency Medicine; PCP Family Medicine
DX: N39.0 Urinary tract infection, site not specified (principal); E78.5 Hyperlipidemia, unspecified; I25.2 Old myocardial infarction; Z90.49 Acquired absence of other specified parts of digestive tract; Z83.3 Family history of diabetes mellitus
CPT/HCPCS: 51702; 80048; 81001; 85025; 99284

== ENCOUNTER 2022-08-14 12:07 | Emergency (ER) | payer MEDICARE, SELFPAY ==
[2022-08-14 12:07] VITALS: BP 141/57; PULSE 86; RESP 19; TEMP 36.5; O2SAT 100; BMI 22.8
--- NOTE | 2022-08-14 12:24 | PC.NURSE ---
Patient given blanket and pillow
[2022-08-14 12:31] VITALS: BP 132/59
--- NOTE | 2022-08-14 12:31 | CT_ITS ---
FINAL REPORT CLINICAL HISTORY: urinary retention COMPARISON: 07/14/2019 FINDINGS: Axial CT images of the abdomen and pelvis were obtained without intravenous contrast. Coronal reformatted images were also obtained.This study was performed with techniques to keep radiation doses as low as reasonably achievable (ALARA). Individualized dose reduction techniques using automated exposure control or adjustment of mA and/or kV according to the patient's size were employed. Abdomen: There is mild atelectasis in the lung bases. There is fluid in the distal esophagus which may reflect a stricture or reflux. There are postoperative changes from cholecystectomy. The liver, spleen and pancreas have an unremarkable, unenhanced appearance. There are multiple masses in both kidneys, many of which are larger since the prior exam. Many do not appear to be simple cyst and may represent hyperdense cysts or renal neoplasms. There is bilateral adrenal gland enlargement, favor adenomas. There is no evidence of renal stone or hydronephrosis. There is a moderate hiatal hernia. There are moderate vascular calcifications. Pelvis: There is widespread colonic diverticulosis. There are postoperative changes from hysterectomy. A Eisenberg catheter is present. There are multiple chronic pelvic fractures. IMPRESSION: Multiple bilateral renal masses are larger and do not appear to be simple cysts. May represent hyperdense cysts or renal neoplasms. Could be further evaluated with renal mass protocol CT or MRI. Moderate hiatal hernia. Fluid in the distal esophagus could be further evaluated with upper endoscopy. Reviewed, Interpreted and Dictated by Nitin Saenz III, MD Transcribed by Tanna Pierre Authenticated and . [facility]
--- NOTE | 2022-08-14 12:31 | CT_ITS ---
FINAL REPORT CLINICAL HISTORY: ams FINDINGS: Axial images of the head were obtained without contrast. Coronal reformatted images were also obtained. This study was performed with techniques to keep radiation doses as low as reasonably achievable (ALARA). Individualized dose reduction techniques using automated exposure control or adjustment of mA and/or kV according to the patient's size were employed. There is generalized age-appropriate atrophy. Periventricular low-attenuation areas are seen consistent with a moderate chronic ischemic changes. There are areas of encephalomalacia in the right hemisphere consistent with prior infarcts. There is a small right parietal calcification, appears chronic. There is a small increased attenuation area in the right hippocampus of uncertain etiology, calcification is favored to. There is no evidence of intracranial hemorrhage or mass. There is no evidence of acute infarct. There is no evidence of shift of the midline structures. There is fluid or debris in the left maxillary sinus which is worrisome for left maxillary sinusitis. No skull abnormality is seen on the bone window images. IMPRESSION: Atrophy and moderate chronic ischemic changes. Right hemispheric areas of encephalomalacia, favor focus of calcification in the right hippocampus, hemorrhage is felt less likely. Could be further evaluated with follow-up CT or MRI. Reviewed, Interpreted and Dictated by Nitin Saenz III, MD Transcribed by Tanna Pierre Authenticated and [facility]
--- NOTE | 2022-08-14 12:32 | XR_ITS ---
FINAL REPORT CLINICAL HISTORY: ams FINDINGS: A single portable view of the chest was obtained. There is cardiomegaly. The mediastinum is within normal limits. No acute pulmonary abnormality is identified. The bony thorax is intact. IMPRESSION: No active cardiopulmonary disease. Reviewed, Interpreted and Dictated by Nitin Saenz III, MD Transcribed by Tanna Pierre Authenticated and [facility]
--- NOTE | 2022-08-14 12:33 | HMH.EDAMS ---
Discharge Plan Disposition Patient Disposition: Home, Self-Care Condition: Good Prescriptions Prescriptions: New cephalexin 500 mg capsule 500 mg PO BID 10 Days Qty: 20 0RF No Action clopidogrel [Plavix] 75 mg tablet 75 mg PO DAILY ferrous sulfate [iron] 325 mg (65 mg iron) tablet 325 mg PO DAILY rosuvastatin 20 mg tablet 20 mg PO DAILY cholecalciferol (vitamin D3) [Vitamin D3] 25 mcg (1,000 unit) capsule 25 mcg PO DAILY aspirin 81 mg tablet,delayed release (DR/EC) 81 mg PO DAILY metoprolol succinate 50 mg tablet extended release 24 hr 50 mg PO DAILY alendronate 70 mg tablet 70 mg PO FR allopurinol 100 mg tablet 100 mg PO DAILY oxybutynin chloride 5 mg tablet 5 mg PO BID furosemide 40 mg tablet 40 mg PO BID gabapentin 300 mg capsule 300 mg PO BID Qty: 60 5RF nifedipine 90 mg tablet extended release 90 mg PO DAILY Referrals Follow up/Referrals: Jovanny Gonzalez MD [Primary Care Provider] - See instructions Activity Restrictions/Add. Instructions Additional Instructions/Restrictions: Plenty of fluids. Follow-up with urology as scheduled take antibiotics as directed. Return for fever or other concerns Clinical Impressions Clinical Impression: Urinary tract infection, Altered mental status Instructions Patient Instructions: DI for Altered Mental Status Discharge ED Provider: Rob Ortiz Altered Mental Status HPI General Chief Complaint: Altered Mental Status Stated Complaint: AMS Time Seen by Provider: 08/14/22 12:23 Mode of Arrival: Ambulatory Source of Information: Relative Limitations: No Limitations Description of Symptoms (Recalled from ER Triage Doc. by RN): 82 F presents with family who report she is confused. Family report they saw her Friday and Friday to which she was at her baseline. Between then and 1 hour ago she is not herself and just isn't too sure of anything. Patient currently being followed by Dr. Hawkins, nephrology for kidney issues. She is also supposed to see a Urologist for inability to urinate. She currently has a leg bag in place. Family reports she has accidentally been taking double Oxybutynin by accident. 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 History of Present Illness HPI narrative: Patient presents with approximate 2 to 3 days of confusion that she states is gotten worse today. She denies headache or chest pain. She denies fever. She otherwise denies focal neurological symptoms. She did recently have a urinary catheter placed per family members. She denies hematuria or dysuria. Her confusion is described as mild to moderate and without exacerbating alleviating factors Related Data Home Medications Medication Instructions Recorded Confirmed alendronate 70 mg tablet 70 mg PO FR osteoporosis 03/26/22 08/14/22 allopurinol 100 mg tablet 100 mg PO DAILY Gout 03/26/22 08/14/22 aspirin 81 mg tablet,delayed 81 mg PO DAILY Heart 03/28/22 08/14/22 release cholecalciferol (vitamin D3) 25 25 mcg PO DAILY Supplement 03/28/22 08/14/22 mcg (1,000 unit) capsule (Vitamin D3) clopidogrel 75 mg tablet (Plavix) 75 mg PO DAILY NSTEMI 03/28/22 08/14/22 ferrous sulfate 325 mg (65 mg 325 mg PO DAILY Supplement 03/28/22 08/14/22 iron) tablet (iron) oxybutynin chloride 5 mg tablet 5 mg PO BID incontinence 03/28/22 08/14/22 rosuvastatin 20 mg tablet 20 mg PO DAILY High cholesterol 03/28/22 08/14/22 nifedipine 90 mg tablet,extended 90 mg PO DAILY Hypertension 04/22/22 08/14/22 release furosemide 40 mg tablet 40 mg PO BID diuretic 04/29/22 08/14/22 metoprolol succinate 50 mg 50 mg PO DAILY HTN 07/31/22 08/14/22 tablet,extended release 24 hr Previous Rx's Medication Instructions Recorded gabapentin 300 mg capsule 300 mg PO BID neuropathic pain #60 07/18/22 caps cephalexin 500 mg capsule 500 mg PO BID 10 days #20 caps 08/14
[2022-08-14 12:38] LABS: Microscopic, Urine URINE MICROSCOPIC (MICROSCOPIC)
[2022-08-14 12:40] LABS: Appearance,Urine CLOUDY (Clear); Bilirubin,Urine Negative (Negative); Blood, Urine 2+ (Negative); Color,Urine YELLOW (Yellow); Glucose,Urine (UA) Negative (Negative); Ketones,Urine Negative (Negative); Leukocyte Esterase,Urine 3+ (Negative); Nitrate,Urine POSITIVE (Negative); Protein,Urine 2+ (Negative); Urobilinogen,Urine 0.2 EU/dl (0.2)
[2022-08-14 12:41] LABS: Basophils # 0.1 K/mm3 (0-0.2); Basophils % 0.9 % (0.1-2.0); Eosinophils # 0.3 K/mm3 (0.0-0.4); Hematocrit 40.2 % (37.0-47.0); Hemoglobin 13.2 g/dL (12.2-16.2); Lymphocytes % 19.9 % (10-50); Mean Corpuscular HGB Conc 32.7 g/dL (31.8-35.4); Mean Corpuscular Hemoglobin 31.4 pg (27.0-31.2); Mean Corpuscular Volume 95.8 fl (81-99); Mean Platelet Volume 7.9 fl (7.4-10.4); Monocytes # 0.6 K/mm3 (0.1-1.0); Monocytes % 5.4 % (1.7-9.3); Neutrophils # 7.1 K/mm3 (1.8-7.8); Neutrophils % 70.6 % (37.0-80.0); Platelet Count 398 K/mm3 (142-424); Red Cell Distribution Width 13.9 % (11.5-17.5); White Blood Count 10.1 K/mm3 (4.8-10.8)
[2022-08-14 12:44] LABS: Chloride 98 mmol/L (98-107); Sodium 137 mmol/L (136-145)
[2022-08-14 12:47] LABS: Alanine Aminotransferase 28 U/L (12-78); Albumin Level 4.7 g/dl (3.5-5.0); Albumin/Globulin Ratio 1.2 (1.1-1.8); Alkaline Phosphatase 117 U/L (38-126); Aspartate Amino Transferase 37 U/L (14-36); Bilirubin,Total 0.5 mg/dl (0.2-1.3); Blood Urea Nitrogen 45 mg/dl (7-17); Calcium 9.8 mg/dl (8.4-10.2); Carbon Dioxide 27 mmol/L (22.0-30.0); Creatinine Clearance Estimated 19 mL/min (50-200); Estimated Glomerular Filt Rate 24 ml/min (>60); GFR (African American) 29 ML/MIN (>60); Globulin 3.9 g/dL (1.3-3.2); Glucose 120 mg/dl (74-100); Total Protein,Serum 8.6 g/dl (6.3-8.2)
[2022-08-14 12:57] LABS: NT Pro Brain Natriuretic Pep. 2730 pg/mL (0-450)
[2022-08-14 13:00] VITALS: BP 124/53; PULSE 71; O2SAT 95
[2022-08-14 13:00] LABS: Troponin I < 0.01 ng/ml (0.00-0.034)
[2022-08-14 13:00] LABS: Bacteria,Urine 2+ /lpf; RBC,Urine Occasional #/hpf (0-3); Squamous Epithelial Cell,Urine Occasional #/hpf (0-5); WBC,Urine 50-100 #/hpf (0-3)
[2022-08-14 14:01] VITALS: BP 125/53; PULSE 64; O2SAT 95
--- NOTE | 2022-08-14 14:23 | PC.NURSE ---
contacted rad to check on status of CT report, states nothing available at this time
[2022-08-14 15:29] VITALS: BP 120/52; PULSE 74; RESP 16; TEMP 36.6; O2SAT 94
== END 2022-08-14 15:38 | disposition home or self-care (01) ==
PROVIDERS: Emergency Provider Emergency Medicine; PCP Family Medicine
DX: R41.82 Altered mental status, unspecified (principal); N39.0 Urinary tract infection, site not specified; E78.5 Hyperlipidemia, unspecified; Z86.73 Personal history of transient ischemic attack (TIA), and cerebral infarction without residual deficits; Z86.79 Personal history of other diseases of the circulatory system; Z90.49 Acquired absence of other specified parts of digestive tract; Z90.710 Acquired absence of both cervix and uterus; Z83.3 Family history of diabetes mellitus
CPT/HCPCS: 51702; 70450; 71045; 74176; 80053; 81001; 83880; 84484; 85025; 87086; 87088; 87186; 96361; 96365; 99284; 99285; J0696

== ENCOUNTER 2022-09-10 16:00 | Outpatient (RCR) | payer MEDICARE, SELFPAY ==
--- NOTE | 2022-05-16 12:00 | HMH.PTOPWND ---
Rehab Outpt Wound Evaluation Rehab OP Wound Evaluation Start: 05/16/22 11:14 Freq: Status: Active Protocol: Document 05/16/22 11:48 URI (Rec: 05/16/22 12:00 PHOWERNER [id number]) E-signed By Saman Timmons, PT Subjective/History History History This is the initial PT eval for Rajwinder Zamorano 82 yowf who presents with c/o B LE edema, R > L, for many years. She reports she wears compressionstocking which help and her edema goes down at night while she is sleeping in bed. She reports no pain at this time, but she does have some neuropathy in B LE from ankle distally. She reports PMH of HL, recent heart cath with stent, DM-II, CKD, and NSTEMI. Subjective Subjective She reports no c/o pain at this time, 0/10. She presents with 2+ pitting edema to B LE, R LE is worse with edema from mid-calf distally. 0/4 TTP noted this date. Lymphedema Eval Classification of Lymphedema Secondary Lymphedema Yes Stemmer's sign Stemmer's Sign no Stage of Lymphedema Lymphedema stages Stage I (Pitting edema, reduces w/ elevation, no fibrosis) Skin Changes Dry Skin Yes Redness Yes Other Changes Yes Affected Extremities Areas Affected by Lymphedema/Edema Right Lower Extremity,Left Lower Extremity Manual Lymphatic Drainage Treatment Area MLD Treatment Area Right Lower Extremity,Left Lower Extremity Wound Problems/Impairments Impairments Problems/Impairmments Impaired Endurance,Impaired Gait Pattern,Impaired Walking, Impaired Household Care, Impaired Recreational Activities,Increased Edema, Lymphedema Present,Impaired Self Care/Self Management Prognosis Rehab Potential Good Clinical Impression Consistent with Diagnosis Yes Short Term Goals Number of Weeks 2 Decrease Edema Yes: 1+ pitting Patient to be Ind w/ Donning/[employer]gett Yes Compression Garments
--- NOTE | 2022-06-18 15:14 | HMH.RHREAS ---
Rehab Reassessment Rehab OP Re-assessment Start: 06/18/22 14:55 Freq: Status: Active Protocol: Document 06/18/22 14:57 [email or web address] (Rec: 06/18/22 15:13 PHOWERNER [id number]) E-signed By Saman Timmons, PT Rehab Re-assessment Subjective Subjective Pt reports, I feel pretty good, I think it's getting better. Objective Objective Notes Edema: 2+ pitting edema continues in B lower legs. Pain: Pt reports 0/10 pain at this time. Assessment Progress Assessment Slower Than Expected Assessment Notes Pt has shown improvement in overall feelings of discomfort , but edema has not responded as quickly to current treatment regimen. She continues to present with 2+ pitting edema in B LE, but no tenderness to palpation. Patient goals met ST,[address] LT,2,3,4 Revised Goals none Plan Plan Continue per POC Frequency of Therapy 2 x/wk Duration of therapy 4 wks Time and Billing Re-Eval Time 15 Re-Eval Billing Units 1 PHYSICIAN CERTIFICATION: I certify the specified therapy services for Rajwinder Zamorano are required, authorized, and reviewed every 30 days.
--- NOTE | 2022-07-17 13:36 | HMH.RHREAS ---
Rehab Reassessment Rehab OP Re-assessment Start: 06/18/22 14:55 Freq: Status: Active Protocol: Document 07/17/22 13:28 PHOLeeanneJERRI (Rec: 07/17/22 13:36 PHORJERRI [id number]) E-signed By Saman Timmons, PT Rehab Re-assessment Subjective Subjective Pt reports no c/o pain in B LE this date, feels she is much improved overall. Objective Objective Notes Circumferential Measurements: R LE total is 179.1 cm which is +1.6 cm since initial eval. L LE total is 172.0 cm which is -2.5 cm since initial eval. Pain: Pt reports 0/10 pain at this time. Assessment Progress Assessment Progressing as Expected Assessment Notes Pt continues to show improvements with edema overall, but some fluctuations noted in overall size. Mobility steadily improved, as is strength. Continues to need further compression to B LE with MLD to reduce edema. Patient goals met ST,2,3 Goals Not Met LT,2,3,4 Revised Goals none Plan Plan Continue per POC Frequency of Therapy 2 x/wk Duration of therapy 4 wks Time and Billing Re-Eval Time 13 Re-Eval Billing Units 1 PHYSICIAN CERTIFICATION: I certify the specified therapy services for Rajwinder Zamorano are required, authorized, and reviewed every 30 days.
--- NOTE | 2022-08-21 11:20 | HMH.RHREAS ---
Rehab Reassessment Rehab OP Re-assessment Start: 06/18/22 14:55 Freq: Status: Active Protocol: Document 08/21/22 11:15 [email or web address] (Rec: 08/21/22 11:20 PHOWERNER [id number]) E-signed By Saman Timmons PT Rehab Re-assessment Subjective Subjective Pt continues to reports no pain in her legs. She did recently have a UTI, but feels better now in that area as well. Objective Objective Notes Circumferential Measurements: R LE total is 173.1 cm which is -6.0 cm since last RA. L LE total is 168.7 cm which is -3 .3 cm since last RA. Pain: Pt reports 0/10 pain at this time. Assessment Progress Assessment Progressing as Expected Assessment Notes Pt has continued to show significant improvement in overall edema since her last reassessment was performed. She does appear to be close to reaching a plateau with her improvement, especially in the setting of her CKD. She has been having difficulty maintaining her edema reduction with just compression garments and would greatly benefit from a home lymphedema pump to continue maintaining her decreased edema. Patient goals met ST,2,3 Goals Not Met LT,2,3,4 Revised Goals none Plan Plan Continue per POC. Will drop to 1 x/wk for several weeks in preparation for d/c to home program. Frequency of Therapy 1 x/wk Duration of therapy 4 wks Time and Billing Re-Eval Time 15 Re-Eval Billing Units 1 PHYSICIAN CERTIFICATION: I certify the specified therapy services for Rajwinder Zamorano are required, authorized, and reviewed every 30 days.
== END 2022-09-10 16:05 | disposition home or self-care (01) ==
LOC: PT 16:00
PROVIDERS: PCP Family Medicine; Visit Provider Nurse Practitioner
DX: I89.0 Lymphedema, not elsewhere classified (principal)
CPT/HCPCS: 97110; 97140; 97162; 97164

== ENCOUNTER → 2022-11-23 09:04 | Outpatient (CLI) | payer MEDICARE, SELFPAY | PROVIDERS: PCP Family Medicine; Visit Provider Family Medicine | DX: R10.9 Unspecified abdominal pain (principal); B96.5 Pseudomonas (aeruginosa) (mallei) (pseudomallei) as the cause of diseases classified elsewhere; B96.20 Unspecified Escherichia coli [E. coli] as the cause of diseases classified elsewhere | CPT/HCPCS: 87086; 87088; 87186 ==

== ENCOUNTER → 2022-12-06 17:00 | Outpatient (CLI) | payer MEDICARE, SELFPAY ==
[2022-12-06 16:33] LABS: Basophils % 0.3 % (0.1-2.0); Eosinophils # 0.1 K/mm3 (0.0-0.4); Eosinophils % 1.3 % (0.1-12.0); Hematocrit 35.6 % (37.0-47.0); Lymphocytes # 1.8 K/mm3 (0.7-4.5); Lymphocytes % 18.3 % (10-50); Mean Corpuscular HGB Conc 30.8 g/dL (31.8-35.4); Mean Corpuscular Hemoglobin 29.9 pg (27.0-31.2); Mean Platelet Volume 8.3 fl (7.4-10.4); Monocytes # 0.5 K/mm3 (0.1-1.0); Monocytes % 4.9 % (1.7-9.3); Neutrophils # 7.4 K/mm3 (1.8-7.8); Neutrophils % 75.2 % (37.0-80.0); Platelet Count 344 K/mm3 (142-424); Red Blood Count 3.68 M/mm3 (4.20-5.40); Red Cell Distribution Width 15.6 % (11.5-17.5); White Blood Count 9.8 K/mm3 (4.8-10.8)
[2022-12-06 16:36] LABS: Alanine Aminotransferase 36 U/L (12-78); Albumin Level 4.2 g/dl (3.5-5.0); Albumin/Globulin Ratio 1.4 (1.1-1.8); Alkaline Phosphatase 134 U/L (38-126); Anion Gap 22.9 mEq/L (5-15); Aspartate Amino Transferase 46 U/L (14-36); Bilirubin,Total 0.4 mg/dl (0.2-1.3); Calcium 9.3 mg/dl (8.4-10.2); Carbon Dioxide 19 mmol/L (22.0-30.0); Chloride 95 mmol/L (98-107); Estimated Glomerular Filt Rate 9 ml/min (>60); GFR (African American) 10 ML/MIN (>60); Glucose 103 mg/dl (74-100); Magnesium 2.3 mg/dl (1.6-2.3); Potassium 4.9 mmoL/L (3.5-5.1); Sodium 132 mmol/L (136-145); Total Protein,Serum 7.2 g/dl (6.3-8.2)
[2022-12-06 17:07] LABS: Thyroid Stimulating Hormone 2.12 uIU/mL (0.465-4.68)
[2022-12-06 17:27] LABS: Vitamin B12 512 pg/mL (239-931)
[2022-12-06 23:36] LABS: Blood Urea Nitrogen 96 mg/dl (7-17)
[2022-12-12 18:37] LABS: Vitamin B1 108.8 nmol/L (66.5-200.0)
== END ==
LOC: LAB.DROPOF 17:01
PROVIDERS: Visit Provider Nurse Practitioner Family
DX: I10 Essential (primary) hypertension (principal); R25.1 Tremor, unspecified; R68.89 Other general symptoms and signs; Z79.899 Other long term (current) drug therapy
CPT/HCPCS: 80053; 82607; 83735; 84207; 84425; 84443; 85025

== ENCOUNTER → 2022-12-23 08:45 | Outpatient (CLI) | payer MEDICARE, SELFPAY ==
[2022-12-23 17:11] LABS: Microscopic, Urine URINE MICROSCOPIC (MICROSCOPIC)
[2022-12-23 17:28] LABS: Appearance,Urine SL CLOUDY (Clear); Bilirubin,Urine Negative (Negative); Blood, Urine 1+ (Negative); Color,Urine YELLOW (Yellow); Glucose,Urine (UA) Negative (Negative); Ketones,Urine Negative (Negative); Leukocyte Esterase,Urine 2+ (Negative); Nitrate,Urine Negative (Negative); PH,Urine 5.5 (5.0-8.5); Protein,Urine 1+ (Negative); Specific Gravity, Urine 1.015 (1.005-1.030); Urobilinogen,Urine 0.2 EU/dl (0.2)
[2022-12-23 17:29] LABS: Alanine Aminotransferase 42 U/L (12-78); Albumin Level 3.5 g/dl (3.5-5.0); Albumin/Globulin Ratio 1.2 (1.1-1.8); Alkaline Phosphatase 130 U/L (38-126); Anion Gap 14.8 mEq/L (5-15); Aspartate Amino Transferase 47 U/L (14-36); Bilirubin,Total 0.3 mg/dl (0.2-1.3); Blood Urea Nitrogen 78 mg/dl (7-17); Calcium 9.1 mg/dl (8.4-10.2); Carbon Dioxide 23 mmol/L (22.0-30.0); Chloride 102 mmol/L (98-107); Estimated Glomerular Filt Rate 19 ml/min (>60); GFR (African American) 23 ML/MIN (>60); Glucose 110 mg/dl (74-100); Potassium 3.8 mmoL/L (3.5-5.1); Sodium 136 mmol/L (136-145); Total Protein,Serum 6.5 g/dl (6.3-8.2); Uric Acid 4.2 mg/dl (2.5-6.2)
[2022-12-23 17:30] LABS: Hematocrit 31.8 % (37.0-47.0); Mean Corpuscular HGB Conc 31.6 g/dL (31.8-35.4); Mean Corpuscular Hemoglobin 30.5 pg (27.0-31.2); Mean Corpuscular Volume 96.6 fl (81-99); Platelet Count 331 K/mm3 (142-424); Red Blood Count 3.29 M/mm3 (4.20-5.40); Red Cell Distribution Width 15.6 % (11.5-17.5); White Blood Count 6.4 K/mm3 (4.8-10.8)
[2022-12-23 17:46] LABS: Bacteria,Urine Trace /lpf
[2022-12-24 10:49] LABS: Creatinine,Urine Random 62 mg/dL (Not Estab.)
[2022-12-24 10:54] LABS: Intact Parathyroid Hormone 123.2 pg/mL (7.5-53.5)
[2022-12-24 10:59] LABS: 25-OH Vitamin D, Total 29.9 ng/mL (30-100)
== END ==
PROVIDERS: PCP Internal Medicine Nephrology; Visit Provider Internal Medicine Nephrology
DX: N18.30 Chronic kidney disease, stage 3 unspecified (principal); N17.9 Acute kidney failure, unspecified; I10 Essential (primary) hypertension; R80.9 Proteinuria, unspecified; E79.0 Hyperuricemia without signs of inflammatory arthritis and tophaceous disease
CPT/HCPCS: 80053; 81001; 82306; 82570; 83970; 84155; 84550; 85014; 85018; 85048; 85049; 87086

== ENCOUNTER 2023-01-06 10:15 | Inpatient (IN) | payer MEDICARE, SELFPAY ==
[2023-01-06] VITALS (18 sets, daily range): BP systolic 81–124; BP diastolic 25–60; PULSE 64–82; RESP 18–20; TEMP 36.8–37.4; O2SAT 85–99; BMI 21.4; BMI 19.8
--- NOTE | 2023-01-06 10:48 | HMH.EDGENADL ---
Discharge Plan Disposition Patient Disposition: Xfer Intermediate Care Fac Condition: Good Chief Complaint: Urogenital-Female Prescriptions Prescriptions: No Action ferrous sulfate [iron] 325 mg (65 mg iron) tablet 325 mg PO DAILY aspirin 81 mg tablet,delayed release (DR/EC) 81 mg PO DAILY metoprolol succinate 50 mg tablet extended release 24 hr 50 mg PO DAILY oxybutynin chloride 5 mg tablet 5 mg PO BID furosemide 40 mg tablet 40 mg PO BID allopurinol 100 mg tablet 200 mg PO DAILY gabapentin 300 mg capsule 300 mg PO BID Qty: 60 5RF clopidogrel [Plavix] 75 mg tablet 75 mg PO DAILY 30 Days Qty: 30 2RF rosuvastatin 20 mg tablet 20 mg PO DAILY 30 Days Qty: 30 2RF nifedipine 90 mg tablet extended release 90 mg PO DAILY Referrals Follow up/Referrals: Jovanny Gonzalez MD [Primary Care Provider] - See instructions Clinical Impressions Clinical Impression: Acute kidney failure with tubular necrosis, Weakness generalized, Acute pain of right shoulder, Acute hypoxemic respiratory failure due to COVID-19, Acute UTI CHF (congestive heart failure) Qualifiers: Heart failure type: unspecified Heart failure chronicity: acute Qualified Code(s): I50.9 - Heart failure, unspecified Rhabdomyolysis Qualifiers: Rhabdomyolysis type: non-traumatic Qualified Code(s): M62.82 - Rhabdomyolysis Instructions Patient Instructions: DI for Urinary Tract Infection (UTI), DI for Urinary Tract Infection in Children Discharge ED Provider: Rob Pearl General Adult HPI General Chief complaint: Urogenital-Female Stated complaint: possible uti, fall 01/06, confused Time Seen by Provider: 01/06/23 10:19 Mode of Arrival: Wheelchair Source of Information: Patient Limitations: No Limitations Description of Symptoms (Recalled from ER Triage Doc. by RN): Patient's daughter reports that her mom fell last night and has had increased confusion. Daughter is worried that the patient may have a UTI. Daughter also states that the patient took a home COVID test and that it was positive. History of Present Illness HPI narrative: This is an 82-year-old female with history of hypertension, hyperlipidemia, CHF, CAD, numerous UTIs, CKD producing minimal urine presenting with fall. Patient daughter states that 1 day prior to arrival, patient started having cough, home COVID test was positive. Today, patient's daughter showed up at her house to check on her, she was lying in the ground. Patient states that she fell last night, 01/05 in the PM when she tried to get up out of bed in order to use her walker to go bathroom, but felt too weak. Does not room or how she fell or if she struck her head, but is complaining of mild neck pain as well as right shoulder pain. When family got there today, able to help patient stand up, then ambulate without issue. Patient with dry, nonproductive cough. At her neurologic baseline. Patient denies chest pain, shortness of breath, nausea or vomiting, recent weight loss, diarrhea constipation, dysuria, hematuria, frequency, urgency, abdominal pain, fevers or chills, or any other concerns. Lives at home alone Related Data Home Medications Medication Instructions Recorded Confirmed aspirin 81 mg tablet,delayed 81 mg PO DAILY Heart 03/28/22 12/23/22 release ferrous sulfate 325 mg (65 mg 325 mg PO DAILY Supplement 03/28/22 12/23/22 iron) tablet (iron) oxybutynin chloride 5 mg tablet 5 mg PO BID incontinence 03/28/22 12/23/22 nifedipine 90 mg tablet,extended 90 mg PO DAILY Hypertension 04/22/22 12/23/22 release furosemide 40 mg tablet 40 mg PO BID diuretic 04/29/22 12/23/22 metoprolol succinate 50 mg 50 mg PO DAILY HTN 07/31/22 12/23/22 tablet,extended release 24 hr allopurinol 100 mg tablet 200 mg PO DAILY Gout 12/06/22 12/23/22 Previous Rx's Medication Instructions Recorded gabapentin 300 mg capsule 300 mg PO BID neuropathic pain #60 07/18/22 caps
--- NOTE | 2023-01-06 10:50 | XR_ITS ---
FINAL REPORT CLINICAL HISTORY: right shoulder pain after fall FINDINGS: RIGHT SHOULDER Two views demonstrate no acute fracture or dislocation. There are moderate degenerative changes. The visualized bony structures are well aligned. No soft tissue abnormality is seen. IMPRESSION: No acute process. Reviewed, Interpreted and Dictated by Nitin Saenz III, MD Transcribed by Deanna Chaudhari Authenticated and [facility]
--- NOTE | 2023-01-06 10:50 | CT_ITS ---
FINAL REPORT CLINICAL HISTORY: fall, unknown head trauma COMPARISON: 08/14/2022 FINDINGS: Axial images of the head were obtained without contrast. Coronal reformatted images were also obtained. This study was performed with techniques to keep radiation doses as low as reasonably achievable (ALARA). Individualized dose reduction techniques using automated exposure control or adjustment of mA and/or kV according to the patient''s size were employed. There is generalized age-appropriate atrophy. Periventricular low-attenuation areas are seen consistent with moderate to severe chronic ischemic changes. Bilateral areas of encephalomalacia are seen, right greater than left, unchanged from prior exam. There is no evidence of intracranial hemorrhage or mass. There is no evidence of acute infarct. There is no evidence of shift of the midline structures. There is mild left maxillary mucosal thickening. No skull abnormality is seen on the bone window images. IMPRESSION: Atrophy and mild periventricular chronic ischemic changes. No acute intracranial abnormality identified. Reviewed, Interpreted and Dictated by Nitin Saenz III, MD Transcribed by Deanna Chaudhari Authenticated and [facility]
--- NOTE | 2023-01-06 10:50 | CT_ITS ---
FINAL REPORT TECHNIQUE: Axial images were obtained from skull base to the thoracic inlet by computed tomography. Coronal and sagittal reconstruction process performed. This study was performed with techniques to keep radiation doses as low as reasonably achievable (ALARA). Individualized dose reduction techniques using automated exposure control or adjustment of mA and/or kV according to the patient''s size were employed. CLINICAL HISTORY: fall, neck pain FINDINGS: There is no acute fracture or subluxation. There is severe degenerative changes. Mild central canal stenosis is seen at C3-4. There is multilevel neuroforaminal narrowing. The facets are normally aligned. The soft tissues are unremarkable. Limited images of the lung apices are unremarkable. IMPRESSION: No acute fracture. Severe degenerative changes with mild canal stenosis at C3-4 and multilevel neuroforaminal narrowing. Reviewed, Interpreted and Dictated by Nitin Saenz III, MD Transcribed by Deanna Chaudhari Authenticated and [facility]
--- NOTE | 2023-01-06 10:50 | XR_ITS ---
FINAL REPORT TECHNIQUE: Single view chest CLINICAL HISTORY: fall, covid + COMPARISON: 08/14/2022 FINDINGS: A single view of the chest was obtained. The heart is enlarged. There is bilateral pleural scarring or atelectasis. The lungs are otherwise clear. There is no pneumothorax. Osseous structures are unremarkable. IMPRESSION: Cardiomegaly with bilateral pleural scarring or atelectasis. Reviewed, Interpreted and Dictated by Nitin Saenz III, MD Transcribed by Deanna Chaudhari Authenticated and [facility]
[2023-01-06 10:55] LABS: Microscopic, Urine URINE MICROSCOPIC (MICROSCOPIC)
[2023-01-06 11:00] LABS: Chloride 91 mmol/L (98-107); Sodium 125 mmol/L (136-145)
[2023-01-06 11:01] LABS: Potassium 4.5 mmoL/L (3.5-5.1)
[2023-01-06 11:03] LABS: Alanine Aminotransferase 51 U/L (12-78); Albumin Level 4.1 g/dl (3.5-5.0); Albumin/Globulin Ratio 1.3 (1.1-1.8); Alkaline Phosphatase 92 U/L (38-126); Anion Gap 19.5 mEq/L (5-15); Aspartate Amino Transferase 93 U/L (14-36); Basophils % 0.3 % (0.1-2.0); Bilirubin,Total 0.5 mg/dl (0.2-1.3); Carbon Dioxide 19 mmol/L (22.0-30.0); Creatinine Clearance Estimated 8 mL/min (50-200); Eosinophils % 0.1 % (0.1-12.0); Estimated Glomerular Filt Rate 10 ml/min (>60); GFR (African American) 12 ML/MIN (>60); Globulin 3.2 g/dL (1.3-3.2); Hematocrit 32.6 % (37.0-47.0); Hemoglobin 10.4 g/dL (12.2-16.2); Lymphocytes # 1.1 K/mm3 (0.7-4.5); Mean Corpuscular Hemoglobin 30.4 pg (27.0-31.2); Mean Platelet Volume 8.3 fl (7.4-10.4); Monocytes # 0.7 K/mm3 (0.1-1.0); Monocytes % 6.3 % (1.7-9.3); Neutrophils # 8.9 K/mm3 (1.8-7.8); Neutrophils % 83.3 % (37.0-80.0); Platelet Count 224 K/mm3 (142-424); Red Blood Count 3.43 M/mm3 (4.20-5.40); Total Protein,Serum 7.3 g/dl (6.3-8.2); White Blood Count 10.7 K/mm3 (4.8-10.8)
[2023-01-06 11:04] LABS: Creatine Kinase 1302 U/L (30-135); Glucose 137 mg/dl (74-100)
[2023-01-06 11:07] LABS: Blood Urea Nitrogen 85 mg/dl (7-17)
--- NOTE | 2023-01-06 11:09 | PC.NURSE ---
aware of critical creatinine 4.20, BUN 85, CK 1302
[2023-01-06 11:13] LABS: NT Pro Brain Natriuretic Pep. 14300 pg/mL (0-450)
[2023-01-06 11:13] LABS: Appearance,Urine CLEAR (Clear); Bilirubin,Urine Negative (Negative); Blood, Urine 2+ (Negative); Color,Urine YELLOW (Yellow); Glucose,Urine (UA) Negative (Negative); Ketones,Urine Negative (Negative); Leukocyte Esterase,Urine TRACE (Negative); Nitrate,Urine Negative (Negative); PH,Urine 5.5 (5.0-8.5); Protein,Urine 1+ (Negative); Urobilinogen,Urine 0.2 EU/dl (0.2)
[2023-01-06 11:31] LABS: Influenza A, PCR Not Detected (NotDetected); Influenza B, PCR Not Detected (NotDetected)
--- NOTE | 2023-01-06 11:37 | PC.NURSE ---
placed call to [facility] for transfer
--- NOTE | 2023-01-06 11:41 | PC.NURSE ---
pt resting bed nothing needed at this time,call light at bs
--- NOTE | 2023-01-06 12:16 | PC.NURSE ---
Dr Pearl updating family and placed pt on oxygen
--- NOTE | 2023-01-06 12:20 | PC.NURSE ---
pt has been accepted at for ED to ED transfer
[2023-01-06 12:22] LABS: Bacteria,Urine Trace /lpf; WBC,Urine Occasional #/hpf (0-3); Yeast,Urine 1+ /lpf
--- NOTE | 2023-01-06 12:23 | PC.NURSE ---
PT HAS BEEN ACCEPTED TO WAITING FOR ROOM ASSIGNMENT
[2023-01-06 12:26] LABS: Coronavirus 19, PCR Detected (NotDetected)
--- NOTE | 2023-01-06 14:21 | PC.NURSE ---
ROUNDED ON PT NOTHING NEEDED ADJUSTED LIGHTS IN ROOM, FAMILY AT BS
--- NOTE | 2023-01-06 15:01 | PC.NURSE ---
spoke with myriam at [facility], they are awaiting discharges in icu for pt bed placement
--- NOTE | 2023-01-06 15:10 | PC.NURSE ---
readjusted chapo lr nothing else needed at this time,call light at bs
--- NOTE | 2023-01-06 15:25 | CA_ITS ---
APPROVED REPORT EXAM: Comprehensive 2D, Doppler, and color-flow Echocardiogram Rope Maker: Monique Britt RVT Ht: 5 ft 0 in Wt: 110lbs BSA: 1.45 BP: 104/32 mmHg Indications: CHF,COVID+,CAD,HTN,HLD 2D Dimensions LVOT 2.00 cm (M/F) 1.5-2.5 LA Volume 41.10 mL LA Volume Index 28.34 mL/m2 (M/F) 16-34 M-Mode Dimensions RVDd 3.08 cm (0.9-2.6) LA Diam 4.34 cm (1.9-4.0) LVDd 4.51 cm (3.5-5.7) Ao Diam 3.17 cm (2.0-3.7) LVDs 3.22 cm (3.5-5.7) IVSd 1.25 cm (0.6-1.1) PWd 0.97 cm (0.6-1.1) EF (Teich) 55.20% FS 28.60% EDV (Teich) 92.90 mL TAPSE 2.02 (<1.7) ESV (Teich) 41.60 mL LV Diastology E Decel Time 223.00 (160-240 msec) E/A Ratio 0.9 MED E' 8.80 (< 7 cm/sec) E'/MED E' Ratio 10.64 (>14) LAT E' 10.20 (<10 cm/sec) E/LAT E' Ratio 9.18 (>14) Aortic Valve LVOT Max 85.00 (70-110 cm/s) LVOT VTI 22.68 cm AoV Peak Hira. 257.00 (50-130 cm/s) AO Peak GR. 26.40 mmHg AO Mean GR. 15.10 (<5 mmHg) AO VTI 63.72 (18-25 cm) SYBIL (VTI) 1.12 (2.5-4.5 cm2) Mitral Valve MV E Max Hira. 94.00 (40-130 cm/s) MV A Velocity 110.00 (40-130 cm/s) E/A Ratio 0.85 MV Decel. Time 223.00 (160-240 ms) MV PHT 65.00 ms Pulmonary Valve PV Peak Velocity 125.00 (50-150 cm/s) Tricuspid Valve TR P. Velocity 296.00 cm/s RAP Estimate 10.00 mmHg RVSP 45.00 mmHg Left Ventricle The left ventricle is normal size. The left ventricular systolic function is normal. The left ventricular ejection fraction is within the normal range. There is increased LV wall thickness. There is normal LV segmental wall motion. The left ventricular diastolic function is normal. LVEF is 60%. Right Ventricle The right ventricle is mildly dilated. The right ventricular systolic function is normal. Atria Left atrium is moderately dilated. Right atrium is mildly dilated. There is no Doppler evidence of interatial shunt. Aortic Valve The aortic valve leaflets are mildly thickened. Mild aortic stenosis. The peak velocity is 2.6 m/s. Mean AV gradient is 18 mmHg. Max AV gradient is 30 mmHg. Trace aortic regurgitation. Mitral Valve The mitral valve is normal in structure. Trace mitral regurgitation. Tricuspid Valve The tricuspid valve leaflets are thin and pliable. Trace tricuspid regurgitation. RVSP is normal. Pulmonic Valve The pulmonary valve is normal in structure. Trace pulmonic regurgitation. Great Vessels The aortic root is normal in size. The visualized segment of the ascending aorta is normal in size. IVC is normal in size and collapses >50% with inspiration. Pericardium There is no pericardial effusion. Other Information Study Quality: Adequate Conclusion Normal biventricular systolic function. Mild RV dilation. Moderate LA enlargement. Mild RA enlargement. Mild . Electronically signed by : Sarah Alcaraz, 01/06/2023 22:10:47
--- NOTE | 2023-01-06 16:02 | PC.NURSE ---
ECHO BEING DONE
--- NOTE | 2023-01-06 16:35 | PC.NURSE ---
Report given to Anitha Lubin RN.
--- NOTE | 2023-01-06 16:36 | PC.NURSE ---
HOSPITALIST AT BS
--- NOTE | 2023-01-06 16:52 | EXP.HP ---
History of Present Illness *Admission Date: 01/06/23 *Reason for visit:: Weakness *History of present illness: Medicine consulted on patient at the request of ER physician. Patient presented with acute heart failure, hypoxemic respiratory failure, acute on chronic kidney failure, COVID-19, hyponatremia, rhabdomyolysis. Patient presented to the ER after being found at home down for an unknown period of time. Daughter at bedside helps supplement history. Patient has been having increased weakness and swelling in her legs for the past several months. Has been stable on room air with no oxygen requirement. She reports that last night she fell at some time but cannot remember exactly when and was not found until this morning when her family found her at home on the floor. She brought to the ER for further evaluation. In the ER she has an elevation of CK above thousand, creatinine 4.2 with creatinine clearance of 8. (Baseline creatinine 2.0). Significant swelling of her legs. New oxygen requirement to 5 L. Positive for COVID-19. Found to have electrolyte disturbances as well with hyponatremia and hypochloremia. Patient states she took her blood pressure medications this morning which include nifedipine and her diuretic. Blood pressure is soft on evaluation. Satting low 90s on 5 L nasal cannula oxygen. She denies any headache, chest pain, nausea or vomiting. Of note, she had a heart cath performed in April at our facility. 1 stent placed to the distal LAD. EF at that time on echo was preserved at 55% with diastolic dysfunction and aortic insufficiency. She is afebrile with a normal white count today. [facility] Disclaimer: The information contained in this section may have been updated after the patient was seen, as this information can be updated by other users. Medical History HLD (hyperlipidemia) NSTEMI (non-ST elevated myocardial infarction) Typical angina Surgical History History of cholecystectomy History of hysterectomy Family History Diabetes Father Social History Smoking Status: Never smoker alcohol intake: never substance use type: denies use current occupational status: retired Travel in the last 8 weeks: None household members: none housing: house Meds Home Medications and Allergies Home Medications Medication Instructions Recorded Confirmed Type aspirin 81 mg tablet,delayed 81 mg PO DAILY Heart 03/28/22 12/23/22 History release ferrous sulfate 325 mg (65 mg 325 mg PO DAILY Supplement 03/28/22 12/23/22 History iron) tablet (iron) oxybutynin chloride 5 mg tablet 5 mg PO BID incontinence 03/28/22 12/23/22 History nifedipine 90 mg tablet,extended 90 mg PO DAILY Hypertension 04/22/22 12/23/22 History release furosemide 40 mg tablet 40 mg PO BID diuretic 04/29/22 12/23/22 History gabapentin 300 mg capsule 300 mg PO BID neuropathic pain #60 07/18/22 12/23/22 Rx caps metoprolol succinate 50 mg 50 mg PO DAILY HTN 07/31/22 12/23/22 History tablet,extended release 24 hr allopurinol 100 mg tablet 200 mg PO DAILY Gout 12/06/22 12/23/22 History clopidogrel 75 mg tablet (Plavix) 75 mg PO DAILY NSTEMI 30 days #30 12/30/22 Rx tabs rosuvastatin 20 mg tablet 20 mg PO DAILY High cholesterol 30 12/30/22 Rx days #30 tabs New Prescriptions to Start Prescriptions: Allergies Allergy/AdvReac Type Severity Reaction Status Date / Time Penicillins Allergy Intermediate Verified 12/23/22 09:03 sulfamethoxazole AdvReac Severe Verified 12/23/22 09:03 [From ] trimethoprim [From ] AdvReac Severe Verified 12/23/22 09:03 Exam Data for Last 24 hours Vital signs and Labs for Last 24 Hours: Temp Pulse Resp BP Pulse Ox O2 Del Method O2 Flow Rate 99.4 F
--- NOTE | 2023-01-06 17:08 | PC.NURSE ---
arrived to floor by stretcher from ED
--- NOTE | 2023-01-06 19:56 | PC.NURSE ---
report given to nurse at [facility] at this time
--- NOTE | 2023-01-06 20:09 | PC.NURSE ---
mil called at this time and notified that pt is ready for transport
--- NOTE | 2023-01-06 20:38 | EXP.DC.SUM ---
General Admission date:: 01/06/23 Discharge date: 01/06/23 HPI HPI HPI: Medicine consulted on patient at the request of ER physician. Patient presented with acute heart failure, hypoxemic respiratory failure, acute on chronic kidney failure, COVID-19, hyponatremia, rhabdomyolysis. Patient presented to the ER after being found at home down for an unknown period of time. Daughter at bedside helps supplement history. Patient has been having increased weakness and swelling in her legs for the past several months. Has been stable on room air with no oxygen requirement. She reports that last night she fell at some time but cannot remember exactly when and was not found until this morning when her family found her at home on the floor. She brought to the ER for further evaluation. In the ER she has an elevation of CK above thousand, creatinine 4.2 with creatinine clearance of 8. (Baseline creatinine 2.0). Significant swelling of her legs. New oxygen requirement to 5 L. Positive for COVID-19. Found to have electrolyte disturbances as well with hyponatremia and hypochloremia. Patient states she took her blood pressure medications this morning which include nifedipine and her diuretic. Blood pressure is soft on evaluation. Satting low 90s on 5 L nasal cannula oxygen. She denies any headache, chest pain, nausea or vomiting. Of note, she had a heart cath performed in April at our facility. 1 stent placed to the distal LAD. EF at that time on echo was preserved at 55% with diastolic dysfunction and aortic insufficiency. She is afebrile with a normal white count today. Hospital Course Hospital Course Hospital Course: 82-year-old female with multiple comorbidities and numerous acute exacerbations of chronic conditions including acute on chronic CHF, acute on chronic CKD, new oxygen requirement with acute hypoxemic respiratory failure (5 L), new diagnosis of COVID-19, hyponatremia and hypochloremia, and finding of rhabdomyolysis. After evaluation, given her complex comorbidities and high risk for further renal compromise and decompensation, recommend transferring to higher level of care with closed ICU and nephrology. Recommend diuresis x1 in the setting of her severe volume overload and suspected heart failure as underlying component for her renal failure, volume overload, respiratory failure We will obtain echocardiogram Reviewed patient's CMP including her sodium of 125, chloride of 91, BUN 85, creatinine 4.2. Discussed case at length with the ER. Given concern for multiple organ failure/dysfunction as above, feel she is beyond the capacity/capability of our institution to manage her effectively. Discussion with patient about her comorbidities. Asked if she would want CPR if her heart stopped or if she stopped breathing, she stated she wanted to be DNR. Patient was admitted briefly due to unknown timeframe for transfer from the ER. Admission was to aid in continued stabilization and improve nursing care compared to patient boarding in the ER. Patient had increased oxygen requirement from 5 to 6 L upon admission. Was noted to have urine output of approximately 200 cc after initiation of diuretic. Shortly after transitioning to the floor, bed became available at accepting facility. Patient was transferred soon thereafter for higher level of care. Stable for transfer. Exam Data for Last 24 hours Vital signs and Labs for Last 24 Hours: Temp Pulse Resp BP Pulse Ox O2 Del Method O2 Flow Rate 98.2 F 82 20 110/56 L 98 Nasal Cannula 6 01/06/23 20:10 01/06/23 20:10 01/06/23 20:10 01/06/23 20:10 01/06/23 18:00 01/06/23 20:10 01/06/23 20:10 Laboratory Results - last 24 hr 01/06/23 10:20: Urine Color Yellow, Urine Appearance Clear, Urine pH 5.5, Ur Specific [place] 1.020, Urine Protein 1+, Urine Glucose (UA) Negative, Urine Ketones Negative, Urine Blood 2+, Urine Nitrate Negative, Urine Bilirubin Negative, Urine Urobilinog
--- NOTE | 2023-01-06 20:46 | PC.NURSE ---
pt transfered out @20:30 by ambulance
== END 2023-01-06 20:30 | disposition short-term general hospital (02) | DRG 177 ==
LOC: ER 13:03 → 2ND 16:12 → ER 17:41 → 2ND 18:32
PROVIDERS: Admitting Provider Internal Medicine Adolescent Medicine; Emergency Provider Emergency Medicine; PCP Family Medicine; Visit Provider Internal Medicine Adolescent Medicine
DX: U07.1 COVID-19 (principal); J96.01 Acute respiratory failure with hypoxia; N17.0 Acute kidney failure with tubular necrosis; M62.82 Rhabdomyolysis; N17.9 Acute kidney failure, unspecified; E87.1 Hypo-osmolality and hyponatremia; I13.0 Hypertensive heart and chronic kidney disease with heart failure and stage 1 through stage 4 chronic kidney disease, or unspecified chronic kidney disease; E78.5 Hyperlipidemia, unspecified; I50.9 Heart failure, unspecified; Z79.899 Other long term (current) drug therapy; N18.9 Chronic kidney disease, unspecified; I25.2 Old myocardial infarction; I25.119 Atherosclerotic heart disease of native coronary artery with unspecified angina pectoris
CPT/HCPCS: 70450; 71045; 72125; 73030; 80053; 81001; 82550; 83605; 83880; 85025; 87040; 87086; 87636; 93306; 99291; J0696